=== PATIENT | female | born 1985 | race Caucasian/White ===

== ENCOUNTER 2018-05-11 05:31 | Inpatient (IN) | payer OTHER ==
[~2018-05-11] VITALS: Ht 175.3 cm; Wt 79.8 kg
[2018-05-11] MEDS ORDERED: ABILIFY IM (05:57)
[2018-05-11] MEDS ORDERED: NALT380S2 IM (05:57)
--- NOTE | 2018-05-11 06:47 | NUR ---
MD SALCEDO AT BEDSIDE FOR MSE
[2018-05-11] MEDS ORDERED: LORAZEPAM 2 MG/1 ML VIAL IV ONE (07:00)
[2018-05-11] MEDS ORDERED: LORAZEPAM 2 MG/1 ML VIAL ONE (07:04)
[2018-05-11 07:39] LABS: BASOPHILS # (AUTO) 0.1 K/uL (0.0-8.0); BASOPHILS % (AUTO) 0.6 % (0.0-2.0); EOSINOPHILS % (AUTO) 0.1 % (0.0-7.0); HEMATOCRIT 36.1 % (31.2-41.9); LYMPHOCYTES % (AUTO) 10.1 % (20.5-51.5); MEAN CORPUSCULAR HEMOGLOBIN 26.5 uug (24.7-32.8); MEAN CORPUSCULAR HGB CONC 33 g/dL (32.3-35.6); MEAN CORPUSCULAR VOLUME 79.7 fL (75.5-95.3); MONOCYTES # (AUTO) 0.3 K/uL (2.0-10.0); MONOCYTES % (AUTO) 2.6 % (0.0-11.0); NEUTROPHILS # (AUTO) 8.9 K/uL (1.8-8.9); NEUTROPHILS % (AUTO) 86.6 % (38.5-71.5); PLATELET COUNT (AUTO) 258 K/uL (179-408); RED BLOOD CELL COUNT(AUTO) 4.53 MIL/uL (3.63-4.92); WHITE BLOOD COUNT (AUTO) 10.3 K/uL (3.8-11.8)
--- NOTE | 2018-05-11 07:43 | NUR ---
pt resting, no distress noted.
[2018-05-11 07:53] LABS: BILIRUBIN,DIRECT 0.3 mg/dL (0.0-0.2); BILIRUBIN,TOTAL 1.4 mg/dL (0.2-1.0); CREATININE 0.9 mg/dL (0.6-1.3); POTASSIUM 3.2 mmol/L (3.5-5.1); TOTAL PROTEIN, SERUM 7.3 g/dL (6.4-8.2)
[2018-05-11 07:56] LABS: ETHANOL < 3 MG/DL (0-0)
[2018-05-11] MEDS ORDERED: IV NORMAL SALINE 1000 ML BAG IV ONE (09:15)
--- NOTE | 2018-05-11 09:31 | NUR ---
mse completed, sbar report to garcia peters, belongings list done. pt to rm 225 via saniya.
[2018-05-11 10:00] VITALS: BP 116/72
--- NOTE | 2018-05-11 10:10 | NUR ---
Received this admission from ER per helena, this 32 yo female, with the diagnosis of alcohol withdrawal. Transferred to bed comfortably. Routine admission care rendered. Placed on tele SR. Awake, alert, oriented x 4, able to move all extremities on purpose but noted tremors of hands and feeling of weakness. Radha Treviño PEDIATRIC CLINICAL NURSE SPECIALIST informed of admission.
[2018-05-11 11:38] VITALS: BP 100/65
[2018-05-11] MEDS ORDERED: ZOLPIDEM 5 MG TABLET PO PRN (11:45)
[2018-05-11] MEDS ORDERED: MAGNESIUM HYDROXIDE 30 ML LIQUID UDC PO PRN (11:45)
[2018-05-11] MEDS ORDERED: ACETAMINOPHEN 325 MG TABLET PO PRN (11:45)
[2018-05-11] MEDS ORDERED: POTASSIUM CHLORIDE 20 MEQ TAB.PRT.SR PO ONE (11:45)
[2018-05-11] MEDS ORDERED: ONDANSETRON 4 MG/2 ML VIAL IV PRN (11:45)
[2018-05-11] MEDS: LORAZEPAM 2 MG/1 ML VIAL IV PRN ×2 (12:05→20:31)
[2018-05-11 15:40] VITALS: BP 112/73
--- NOTE | 2018-05-11 16:00 | NUR ---
Assisted to the bathroom. Noted increased in HR/ST 160, not in distress, then back to SR when in bed
[2018-05-11] MEDS: IV NS 1000 ML 1,000 ML IV PRN (16:43)
--- NOTE | 2018-05-11 17:55 | NUR ---
IVF infusing. Calm. No nausea/vomiting noted, tolerating diet. Tele SR 78
[2018-05-11 20:00] VITALS: BP 118/80
--- NOTE | 2018-05-11 20:00 | NUR ---
RECEIVED PATIENT AWAKE IN BED, AAOX4 DENIES PAIN OR ANY DISTRESS ON ASSESSMENT. PATIENT ON TELE WITH SR AT 74. SAFETY MEASURES IN PLACE, CALL LIGHT LEFT WITHIN PATIENT'S REACH
[2018-05-11 23:43] VITALS: BP 100/61
[2018-05-12 03:46] VITALS: BP 108/67
[2018-05-12] MEDS: IV NS 1000 ML 1,000 ML IV PRN (06:23)
--- NOTE | 2018-05-12 06:30 | NUR ---
PATIENT SLEPT WELL THROUGHOUT THE SHIFT. ATIVAN GIVEN X1, NO SHAKINESS OR TREMORS REPORTED ON THIS SHIFT. VSS WNL, NO SIGNIFICANT CHANGES IN STATUS. SAFETY MEASURES MAINTAINED AT ALL TIMES
[2018-05-12 07:01] LABS: BASOPHILS % (AUTO) 0.8 % (0.0-2.0); EOSINOPHILS # (AUTO) 0.1 K/uL (0.0-0.7); EOSINOPHILS % (AUTO) 1.1 % (0.0-7.0); HEMATOCRIT 34.3 % (31.2-41.9); HEMOGLOBIN 11.3 g/dL (10.9-14.3); LYMPHOCYTES # (AUTO) 1.1 K/uL (20.0-40.0); LYMPHOCYTES % (AUTO) 22.3 % (20.5-51.5); MEAN CORPUSCULAR HEMOGLOBIN 26.5 uug (24.7-32.8); MEAN CORPUSCULAR HGB CONC 33 g/dL (32.3-35.6); MEAN CORPUSCULAR VOLUME 80.5 fL (75.5-95.3); MONOCYTES # (AUTO) 0.3 K/uL (2.0-10.0); MONOCYTES % (AUTO) 6.1 % (0.0-11.0); NEUTROPHILS # (AUTO) 3.3 K/uL (1.8-8.9); NEUTROPHILS % (AUTO) 69.7 % (38.5-71.5); PLATELET COUNT (AUTO) 233 K/uL (179-408); RED BLOOD CELL COUNT(AUTO) 4.27 MIL/uL (3.63-4.92)
[2018-05-12 07:07] LABS: CREATININE 0.9 mg/dL (0.6-1.3); MAGNESIUM 1.9 mg/dL (1.8-2.4); PHOSPHOROUS 2.8 mg/dL (2.5-4.9); POTASSIUM 4.2 mmol/L (3.5-5.1)
[2018-05-12 07:09] LABS: WHITE BLOOD COUNT (AUTO) 4.8 K/uL (3.8-11.8)
--- NOTE | 2018-05-12 07:53 | NUR ---
Awake, alert, oriented x 4, calm, no tremors, just had a shower. IVF restarted.
[2018-05-12] MEDS: LORAZEPAM 2 MG/1 ML VIAL IV PRN (11:00)
[2018-05-12 11:30] VITALS: BP 114/84
--- NOTE | 2018-05-12 12:58 | NUR ---
With discharge order, self care, patient made arrangement with [facility]. Tele removed. Saline lock removed. DC instruction given to patient, verbalized understanding. Went home per ambulatory per request, accompanied to the lobby, in fair condition, not in distress, afebrile
== END 2018-05-12 13:00 | disposition home or self-care (01) | DRG 775 ==
LOC: ER 05:31 → MED 09:49 → TELE 10:03 → MED 05-12 11:10
PROVIDERS: ADMIT Nurse Practitioner Acute Care; ATTEND Nurse Practitioner Acute Care
DX: F10.230 Alcohol dependence with withdrawal, uncomplicated (principal); F31.81 Bipolar II disorder; Y90.0 Blood alcohol level of less than 20 mg/100 ml; E87.6 Hypokalemia; G25.2 Other specified forms of tremor; Z79.899 Other long term (current) drug therapy; R11.2 Nausea with vomiting, unspecified
CPT/HCPCS: 36415; 70030-TC; 71045; 83605; 83690; 83735; 84100; 84703; 85025; 85730; 87040; 93005; A4663; G0480; J2060; J2405; J7030

== ENCOUNTER 2018-06-08 10:08 | Emergency (ER) | payer OTHER ==
[~2018-06-08] VITALS: Ht 180.3 cm; Wt 77.1 kg
[~2018-06-08 10:08] MED LIST: ABILIFY IM; NALT380S2 IM
--- NOTE | 2018-06-08 10:21 | NUR ---
PT IS IN ROOM #2B. DR ANDERSON EVALUATED THE PT.
[2018-06-08] MEDS ORDERED: LORAZEPAM 2 MG/1 ML VIAL IV ONE ×2 (10:45→11:30)
[2018-06-08] MEDS ORDERED: ONDANSETRON 4 MG/2 ML VIAL IV ONE (10:45)
[2018-06-08] MEDS ORDERED: IV NORMAL SALINE 1000 ML BAG IV ONE ×3 (10:45→11:30)
[2018-06-08] MEDS ORDERED: LORAZEPAM 2 MG/1 ML VIAL ONE ×2 (10:49→11:38)
[2018-06-08] MEDS ORDERED: ONDANSETRON 4 MG/2 ML VIAL ONE ×2 (10:50→11:38)
[2018-06-08 11:05] LABS: CREATININE 0.9 mg/dL (0.6-1.3); POTASSIUM 3.6 mmol/L (3.5-5.1)
[2018-06-08 11:11] LABS: BILIRUBIN,DIRECT 0.3 mg/dL (0.0-0.2); BILIRUBIN,TOTAL 1.1 mg/dL (0.2-1.0); TOTAL PROTEIN, SERUM 6.5 g/dL (6.4-8.2)
[2018-06-08 11:15] LABS: BASOPHILS # (AUTO) 0.1 K/uL (0.0-8.0); BASOPHILS % (AUTO) 0.9 % (0.0-2.0); EOSINOPHILS % (AUTO) 0.2 % (0.0-7.0); HEMATOCRIT 34.1 % (31.2-41.9); LYMPHOCYTES # (AUTO) 0.8 K/uL (20.0-40.0); LYMPHOCYTES % (AUTO) 8.9 % (20.5-51.5); MEAN CORPUSCULAR HEMOGLOBIN 26.2 uug (24.7-32.8); MEAN CORPUSCULAR HGB CONC 32 g/dL (32.3-35.6); MEAN CORPUSCULAR VOLUME 81.3 fL (75.5-95.3); MONOCYTES # (AUTO) 0.3 K/uL (2.0-10.0); MONOCYTES % (AUTO) 3.7 % (0.0-11.0); NEUTROPHILS # (AUTO) 7.9 K/uL (1.8-8.9); NEUTROPHILS % (AUTO) 86.3 % (38.5-71.5); PLATELET COUNT (AUTO) 276 K/uL (179-408); RED BLOOD CELL COUNT(AUTO) 4.19 MIL/uL (3.63-4.92); WHITE BLOOD COUNT (AUTO) 9.2 K/uL (3.8-11.8)
[2018-06-08] MEDS ORDERED: ONDANSETRON IV *ER 4 MG/2 ML VIAL IV ONE (11:30)
--- NOTE | 2018-06-08 12:56 | NUR ---
PT WAS D/C TO HOME. D/C INSTRUCTIONS GIVEN TO THE PT.
[2018-06-08 12:59] VITALS: BP 130/77
== END 2018-06-08 12:59 | disposition home or self-care (01) ==
LOC: ER 10:08
DX: R11.2 Nausea with vomiting, unspecified (principal); F10.239 Alcohol dependence with withdrawal, unspecified; Z88.8 Allergy status to other drugs, medicaments and biological substances; Z79.899 Other long term (current) drug therapy
CPT/HCPCS: 36415; 83690; 84703; 85025; A4663; J2060; J2405; J7030

== ENCOUNTER 2018-06-21 13:50 | Inpatient (IN) | payer OTHER ==
[~2018-06-21] VITALS: Ht 182.9 cm; Wt 77.1 kg
--- NOTE | 2018-06-21 13:55 | NUR ---
pt deneis trying to hurt self
[2018-06-21] MEDS ORDERED: LORA2TAB95 PO (14:00)
--- NOTE | 2018-06-21 14:03 | NUR ---
pt arousable. cooperated when trying to put hospital gown on, moving all extremeties. pt reluctant to verbally communicate.
[2018-06-21 14:58] LABS: BASOPHILS # (AUTO) 0.1 K/uL (0.0-8.0); BASOPHILS % (AUTO) 1.2 % (0.0-2.0); EOSINOPHILS # (AUTO) 0.1 K/uL (0.0-0.7); EOSINOPHILS % (AUTO) 1.2 % (0.0-7.0); HEMOGLOBIN 11.9 g/dL (10.9-14.3); LYMPHOCYTES # (AUTO) 1.3 K/uL (20.0-40.0); LYMPHOCYTES % (AUTO) 30.7 % (20.5-51.5); MEAN CORPUSCULAR HEMOGLOBIN 27.7 uug (24.7-32.8); MEAN CORPUSCULAR HGB CONC 33 g/dL (32.3-35.6); MEAN CORPUSCULAR VOLUME 84.1 fL (75.5-95.3); MONOCYTES # (AUTO) 0.3 K/uL (2.0-10.0); MONOCYTES % (AUTO) 6.5 % (0.0-11.0); NEUTROPHILS # (AUTO) 2.7 K/uL (1.8-8.9); NEUTROPHILS % (AUTO) 60.4 % (38.5-71.5); PLATELET COUNT (AUTO) 320 K/uL (179-408); RED BLOOD CELL COUNT(AUTO) 4.28 MIL/uL (3.63-4.92); WHITE BLOOD COUNT (AUTO) 4.4 K/uL (3.8-11.8)
[2018-06-21 15:06] LABS: CARBON DIOXIDE 28 mmol/L (21-32); CHLORIDE 107 mmol/L (98-107); CREATININE 2.3 mg/dL (0.6-1.3); GLUCOSE 111 mg/dL (74-106); POTASSIUM 3.9 mmol/L (3.5-5.1); UREA NITROGEN, BLOOD 7 mg/dL (7-18)
[2018-06-21 15:12] LABS: ACETAMINOPHEN < 2.0 ug/mL (10-30); ALANINE AMINOTRANSFERASE 17 U/L (14-59); ALKALINE PHOSPHATASE 50 U/L (50-136); ASPARTATE AMINOTRANSFERASE 15 U/L (15-37); BILIRUBIN,DIRECT 0.1 mg/dL (0.0-0.2); BILIRUBIN,TOTAL 0.4 mg/dL (0.2-1.0); TOTAL PROTEIN, SERUM 6.7 g/dL (6.4-8.2)
[2018-06-21 15:13] LABS: ETHANOL < 3 MG/DL (0-0)
[2018-06-21] MEDS ORDERED: IV NORMAL SALINE 1000 ML BAG IV ONE ×2 (15:45→16:45)
[2018-06-21 16:20] LABS: *AMPHETAMINE, URINE NEGATIVE (NEGATIVE); *BARBITURATE, URINE NEGATIVE (NEGATIVE); *CANNABINOID, URINE NEGATIVE (NEGATIVE); *COCCAINE, URINE NEGATIVE (NEGATIVE); *OPIATE, URINE POSITIVE (NEGATIVE); *PHENCYCLIDINE SCREEN,URINE NEGATIVE (NEGATIVE)
--- NOTE | 2018-06-21 16:49 | NUR ---
pt more responsive now.
--- NOTE | 2018-06-21 17:19 | NUR ---
pt transfered to floor in stable condition
[2018-06-21 17:45] VITALS: BP 104/65
--- NOTE | 2018-06-21 18:33 | NUR ---
Patient admitted to rm 220 from ER, transferred to bed via gurney. Patient lethargic, arouses to touch, only able to state name with speech slurred. Minimal bleeding noted coming from vaginal area, asked patient if she was on her cycle, patient shook head yes, I then asked for how long and patient responded "2 days" MD aware. Patient was cleaned and made comfortable, educated patient to not get out of bed without calling for help, patient nodded her head. Bed alarm on. SR on tele, VSS, call light in reach
--- NOTE | 2018-06-21 19:20 | NUR ---
Received pt lying in bed. Lethargic, responsive to verbal stimuli and touch. In no acute distress. IV site on left hand intact and patent. IVF infusing. NSR on tele at 76/min. Safety measure initiated and call berg within reach.
[2018-06-21] MEDS ORDERED: MORPHINE SULFATE 2 MG/1 ML DISP.SYRIN IV PRN (19:30)
[2018-06-21 20:40] VITALS: BP 103/58
[2018-06-21] MEDS: ONDANSETRON 4 MG/2 ML VIAL IV PRN (22:27)
[2018-06-21] MEDS: ACETAMINOPHEN 325 MG TABLET PO PRN (22:30)
[2018-06-21] MEDS: IV NS 1000 ML 1,000 ML IV PRN (22:31)
[2018-06-21] MEDS: LORAZEPAM 2 MG/1 ML VIAL IV PRN (22:42)
[2018-06-22 00:23] VITALS: BP 106/60
[2018-06-22 04:00] VITALS: BP 99/59
--- NOTE | 2018-06-22 04:45 | NUR ---
Patient accidentally puled out her IV line. Started new IV line on left wrist area #22 gauge.
[2018-06-22] MEDS: LORAZEPAM 2 MG/1 ML VIAL IV PRN ×4 (04:55→23:48)
--- NOTE | 2018-06-22 06:06 | NUR ---
Asleep but easily arouse to verbal stimuli. AOX3 In no acute distress. IV site on left wrist intact and patent. IVF infusing. NSR on tele at 82/min. Safety measure maintained and call berg within reach.
[2018-06-22] MEDS: PANTOPRAZOLE SODIUM 40 MG TABLET.DR PO SCH (06:11)
--- NOTE | 2018-06-22 07:00 | NUR ---
RECEIVED PATIENT ON BED ASLEEP. AROUSABLE TO VERBAL STIMULI AAO X3. NO ACUTE DISTRESS NOTED. IV ACCESS ON LEFT WRIST #22 INTACT AND PATENT RUNNING NS @80CC/HR. S/S OF ALCOHOL WITHDRAWAL; SHAKING, ANXIETY, NAUSEA NOTED PER PUBLICATIONS INSPECTOR. PATIENT HAS ATIVAN PRN AND ZOFRAN PRN ALSO PATIENT IS CURRENTLY ON HER PERIOD. COMFORT MEASURES PROVIDED. CALL LIGHT WITHIN REACH,. WILL CONTINUE TO MONITOR CLOSELY.
[2018-06-22 07:11] LABS: BASOPHILS # (AUTO) 0.1 K/uL (0.0-8.0); BASOPHILS % (AUTO) 1.2 % (0.0-2.0); EOSINOPHILS # (AUTO) 0.1 K/uL (0.0-0.7); EOSINOPHILS % (AUTO) 1.7 % (0.0-7.0); HEMATOCRIT 35.2 % (31.2-41.9); HEMOGLOBIN 11.5 g/dL (10.9-14.3); LYMPHOCYTES # (AUTO) 1.4 K/uL (20.0-40.0); LYMPHOCYTES % (AUTO) 31.9 % (20.5-51.5); MEAN CORPUSCULAR HEMOGLOBIN 28.1 uug (24.7-32.8); MEAN CORPUSCULAR HGB CONC 33 g/dL (32.3-35.6); MONOCYTES # (AUTO) 0.2 K/uL (2.0-10.0); MONOCYTES % (AUTO) 5.3 % (0.0-11.0); NEUTROPHILS # (AUTO) 2.7 K/uL (1.8-8.9); NEUTROPHILS % (AUTO) 59.9 % (38.5-71.5); PLATELET COUNT (AUTO) 306 K/uL (179-408); RED BLOOD CELL COUNT(AUTO) 4.09 MIL/uL (3.63-4.92); WHITE BLOOD COUNT (AUTO) 4.5 K/uL (3.8-11.8)
[2018-06-22 07:25] LABS: BILIRUBIN,TOTAL 0.5 mg/dL (0.2-1.0); CREATININE 2.4 mg/dL (0.6-1.3); MAGNESIUM 2.2 mg/dL (1.8-2.4); PHOSPHOROUS 3.4 mg/dL (2.5-4.9); POTASSIUM 3.5 mmol/L (3.5-5.1); TOTAL PROTEIN, SERUM 6.5 g/dL (6.4-8.2)
[2018-06-22 08:13] LABS: THYROID STIMULATING HORMONE 1.351 mIU/mL (0.358-3.740)
[2018-06-22] MEDS: FOLIC ACID 1 MG TABLET PO SCH (08:27)
[2018-06-22] MEDS: THIAMINE HCL 100 MG TABLET PO SCH (08:27)
[2018-06-22] MEDS: MULTIVITAMINS,THERAPEUTIC TABLET PO SCH (08:27)
[2018-06-22] MEDS: ONDANSETRON 4 MG/2 ML VIAL IV PRN ×2 (08:35→17:58)
[2018-06-22 11:38] VITALS: BP 98/56
[2018-06-22] MEDS: ACETAMINOPHEN 325 MG TABLET PO PRN ×2 (12:37→23:09)
[2018-06-22] MEDS: IV NS 1000 ML 1,000 ML IV PRN ×2 (12:38→19:44)
[2018-06-22 13:55] LABS: *BILIRUBIN,URIN NEGATIVE (NEGATIVE); *BLOOD, URINE 3+ (NEGATIVE); *COLOR,URINE PINK (YELLOW); *KETONES,URINE NEGATIVE (NEGATIVE); *PROTEIN,URINE 1+ (NEGATIVE); *UROBILINOGEN,URINE 0.2 E.U./dl (NORMAL); LEUKOCYTE ESTERASE ,URINE TRACE (NEGATIVE); NITRITE, URINE NEGATIVE (NEGATIVE); UGLUCOSE NEGATIVE (NEGATIVE)
[2018-06-22 13:57] LABS: *CLARITY,URINE HAZY (CLEAR)
[2018-06-22 14:03] LABS: RBC,URINE 20-50 /HPF (0-3)
[2018-06-22 14:05] LABS: BACTERIA,URINE MODERATE /HPF (NONE SEEN); SQUAMOUS EPITHELIAL CELL,UR MODERATE /HPF (NONE SEEN)
[2018-06-22 15:28] LABS: *CREATININE,URINE 54.1 mg/dL (30-125); *URINE TOTAL PROTEIN RANDOM 48.3 mg/dL (<150/24HR)
[2018-06-22 15:32] VITALS: BP 103/68
--- NOTE | 2018-06-22 18:20 | NUR ---
END OF SHIFT NOTES. PATIENT RESTING COMFORTABLY ON BED. IV ACCESS ON LEFT WRIST #22 INTACT AND PATENT INFUSING NS, INCREASED TO 125 CC/HR. STILL EXPERIENCING S/S OF ALCOHOL WITHDRAWALS; SHAKING, ANXIETY, NAUSEA AND VOMITING. EMESIS X 1. ATIVAN AND ZOFRAN PRN GIVEN TWICE THIS SHIFT. PATIENT HAD LITTLE APPETITE THROUGHOUT THE DAY. PATIENT STILL ON HER PERIOD. ALL NEEDS ATTENDED AND ANTICIPATED. CALL LIGHT WITHIN REACH WILL CONTINUE TO MONITOR CLOSELY.
[2018-06-22 19:43] VITALS: BP 124/87
--- NOTE | 2018-06-22 21:06 | NUR ---
Pt seen and evaluated by Dr. Solorio. Patient complained of headache. Pain medication administered and effective. Assisted patient to restroom due to notable trembling and complaints of dizziness. Will continue to monitor.
--- NOTE | 2018-06-23 01:16 | NUR ---
Pt sleeping comfortably. Bed in low position. Bed alarms engaged. CIWA done ever 4 hours. Frequent visual checks. Will continue to monitor.
[2018-06-23 03:45] VITALS: BP 111/76
[2018-06-23] MEDS: PANTOPRAZOLE SODIUM 40 MG TABLET.DR PO SCH (06:11)
--- NOTE | 2018-06-23 06:23 | NUR ---
Pt resting in bed. Blood drawn by wan support specialist. Pt arousable. No complaints of pain at this time. Reminded to request assistance when getting out of bed. Frequent visual checks. Will continue plan of care.
--- NOTE | 2018-06-23 07:10 | NUR ---
Nurse Notes: Received patient asleep, on bed on a side lying position, on room air, no SOB or distress, easily aroused. Denies any pain or discomforts. IV site patent and intact. informed of the hourly rounding, safety precautions observed. Call light and telephone within reach. Encouraged to use call light whenever assistance is needed. Will continue to monitor.
[2018-06-23 07:21] LABS: BASOPHILS # (AUTO) 0.1 K/uL (0.0-8.0); EOSINOPHILS # (AUTO) 0.1 K/uL (0.0-0.7); EOSINOPHILS % (AUTO) 1.4 % (0.0-7.0); HEMATOCRIT 33.3 % (31.2-41.9); HEMOGLOBIN 11.1 g/dL (10.9-14.3); LYMPHOCYTES # (AUTO) 1.4 K/uL (20.0-40.0); LYMPHOCYTES % (AUTO) 24.4 % (20.5-51.5); MEAN CORPUSCULAR HEMOGLOBIN 28.3 uug (24.7-32.8); MEAN CORPUSCULAR HGB CONC 33 g/dL (32.3-35.6); MEAN CORPUSCULAR VOLUME 84.8 fL (75.5-95.3); MONOCYTES # (AUTO) 0.4 K/uL (2.0-10.0); MONOCYTES % (AUTO) 6.5 % (0.0-11.0); NEUTROPHILS # (AUTO) 3.7 K/uL (1.8-8.9); NEUTROPHILS % (AUTO) 66.7 % (38.5-71.5); PLATELET COUNT (AUTO) 317 K/uL (179-408); RED BLOOD CELL COUNT(AUTO) 3.92 MIL/uL (3.63-4.92); WHITE BLOOD COUNT (AUTO) 5.6 K/uL (3.8-11.8)
[2018-06-23 07:35] LABS: BILIRUBIN,TOTAL 0.4 mg/dL (0.2-1.0); CREATININE 1.9 mg/dL (0.6-1.3); MAGNESIUM 1.7 mg/dL (1.8-2.4); PHOSPHOROUS 3.5 mg/dL (2.5-4.9); POTASSIUM 3.9 mmol/L (3.5-5.1); TOTAL PROTEIN, SERUM 6.2 g/dL (6.4-8.2)
[2018-06-23] MEDS: IV NS 1000 ML 1,000 ML IV PRN ×2 (08:17→16:44)
[2018-06-23] MEDS: FOLIC ACID 1 MG TABLET PO SCH (08:17)
[2018-06-23] MEDS: MULTIVITAMINS,THERAPEUTIC TABLET PO SCH (08:18)
[2018-06-23] MEDS: THIAMINE HCL 100 MG TABLET PO SCH (08:18)
[2018-06-23] MEDS: ONDANSETRON 4 MG/2 ML VIAL IV PRN (08:28)
[2018-06-23] MEDS: LORAZEPAM 2 MG/1 ML VIAL IV PRN ×3 (11:25→22:47)
[2018-06-23 11:32] VITALS: BP 123/87
[2018-06-23] MEDS ORDERED: MAGNESIUM OXIDE 400 MG TABLET PO ONE (12:15)
[2018-06-23] MEDS ORDERED: MIRALAX 17 GM POWD.PACK PO PRN (12:15)
[2018-06-23 15:20] VITALS: BP 121/86
--- NOTE | 2018-06-23 16:41 | NUR ---
Nurse Notes: patient accidentally pulled out her IV on her left arm. No signs and symptoms of infection on the site noted. Patient denies any pain or discomforts on the site. Able to insert a new IV line on right hand gauge 22, labeled and secured with transparent dressing. patient tolerated well the procedure.
[2018-06-23] MEDS: ACETAMINOPHEN 325 MG TABLET PO PRN (17:12)
--- NOTE | 2018-06-23 17:17 | NUR ---
Nurse notes: patient remained stable throughout the shift with no acute changes noted. no changes in LOC or mentation. Assessed for pain, medicated with Tylenol for headache. Ativan given for anxiety- relieved. safety precautions observed. frequent visual checks done. Safety precautions observed. call light and telephone within reach at all times. kept patient comfortable. Encouraged to turn and reposition. IV site patent and intact. Still on NS at 125 mL/hr. patient denies any discomforts on the site. Will continue to monitor. Will endorse accordingly to incoming shift for continuity of care.
[2018-06-23 19:30] VITALS: BP 122/84
--- NOTE | 2018-06-23 20:00 | NUR ---
Pt awake alert oriented. CIWA monitoring every 4 hours. Noted with decreased tremors today. Pt able to ambulate to restroom with assistance. Call light in reach. Bed in low position. Frequent visual checks. Will continue to monitor.
--- NOTE | 2018-06-23 23:30 | NUR ---
IV site dressing changed. Pt took shower with assistance from RUFINA carver. Pt appears to be improving. Noted with decrease tremors. No complaints of pain. Pt stated she was anxious. Medication administered and effective. Call light in reach. Will continue to monitor.
--- NOTE | 2018-06-24 02:00 | NUR ---
Noted pt verbalized the she "cared for mother" and knows how to use an IV machine. Pt manipulating IV pump. Encouraged to minimize manipulating pump. Call light in reach at all times. Will continue to monitor.
[2018-06-24] MEDS: IV NS 1000 ML 1,000 ML IV PRN (03:32)
[2018-06-24 03:38] VITALS: BP 106/70
[2018-06-24] MEDS: PANTOPRAZOLE SODIUM 40 MG TABLET.DR PO SCH (06:02)
[2018-06-24 06:05] LABS: CREATININE 1.3 mg/dL (0.6-1.3); MAGNESIUM 1.7 mg/dL (1.8-2.4); POTASSIUM 3.6 mmol/L (3.5-5.1)
--- NOTE | 2018-06-24 07:30 | NUR ---
Pt.sleeping,no s/s of acute distress or pain noted.
[2018-06-24] MEDS: THIAMINE HCL 100 MG TABLET PO SCH (08:22)
[2018-06-24] MEDS: FOLIC ACID 1 MG TABLET PO SCH (08:22)
[2018-06-24] MEDS: MULTIVITAMINS,THERAPEUTIC TABLET PO SCH (08:22)
[2018-06-24] MEDS ORDERED: NITROFURANTOIN/NITROFURAN MAC 100 MG CAPSULE PO SCH (09:00)
[2018-06-24 11:20] VITALS: BP 121/78
--- NOTE | 2018-06-24 11:55 | NUR ---
Pt.accidently pull iv out,refuse to putt on due d/c home,no s/s of acute distress.
--- NOTE | 2018-06-24 12:10 | NUR ---
Pt.was seen by with d/c orders.
[2018-06-24] MEDS ORDERED: MULT1TAB73 PO (12:33)
[2018-06-24] MEDS ORDERED: DIAZ10TA PO (12:33)
--- NOTE | 2018-06-24 13:24 | NUR ---
Pt.d/c instruction provided,pt.own med was roller picker from pharmacy and returned to the pt.Pt.was d/c home accompanied by friend.
== END 2018-06-24 13:30 | disposition home or self-care (01) | DRG 812 ==
LOC: ER 13:50 → TELE 16:56 → MED 06-22 12:30
PROVIDERS: ADMIT Internal Medicine; ATTEND Internal Medicine
DX: T42.4X1A Poisoning by benzodiazepines, accidental (unintentional), initial encounter (principal); N17.0 Acute kidney failure with tubular necrosis; G92 Toxic encephalopathy; E83.42 Hypomagnesemia; E88.09 Other disorders of plasma-protein metabolism, not elsewhere classified; F31.9 Bipolar disorder, unspecified; Y92.009 Unspecified place in unspecified non-institutional (private) residence as the place of occurrence of the external cause; F10.239 Alcohol dependence with withdrawal, unspecified; T51.0X1A Toxic effect of ethanol, accidental (unintentional), initial encounter; Y90.0 Blood alcohol level of less than 20 mg/100 ml; N39.0 Urinary tract infection, site not specified; F41.9 Anxiety disorder, unspecified
CPT/HCPCS: 36415; 76770; 80307; 83735; 83970; 84100; 84156; 84300; 84443; 84703; 85025; 93005; A4663; C1758; G0480; G0480-TC; J2060; J2270; J2405; J7030

== ENCOUNTER 2018-08-07 14:37 | Inpatient (IN) | payer OTHER ==
[~2018-08-07] VITALS: Ht 175.3 cm; Wt 77.1 kg
[~2018-08-07 14:37] MED LIST changes: +DIAZ10TA PO; +MULT1TAB73 PO; -NALT380S2 IM
[2018-08-07] MEDS ORDERED: LORAZEPAM 2 MG/1 ML VIAL IV ONE ×4 (14:45→18:00)
[2018-08-07] MEDS ORDERED: IV NORMAL SALINE 1000 ML BAG IV ONE ×2 (14:45→16:30)
[2018-08-07] MEDS ORDERED: ONDANSETRON 4 MG/2 ML VIAL ONE ×2 (14:54→15:49)
[2018-08-07] MEDS ORDERED: LORAZEPAM 2 MG/1 ML VIAL ONE ×3 (14:55→20:55)
[2018-08-07] MEDS ORDERED: ONDANSETRON IV *ER 4 MG/2 ML VIAL IV ONE ×2 (15:00→15:45)
[2018-08-07 15:02] LABS: BASOPHILS # (AUTO) 0.2 K/uL (0.0-8.0); BASOPHILS % (AUTO) 2.7 % (0.0-2.0); EOSINOPHILS % (AUTO) 0.2 % (0.0-7.0); HEMATOCRIT 36.9 % (31.2-41.9); HEMOGLOBIN 12.2 g/dL (10.9-14.3); LYMPHOCYTES # (AUTO) 1.1 K/uL (20.0-40.0); LYMPHOCYTES % (AUTO) 13.5 % (20.5-51.5); MEAN CORPUSCULAR HEMOGLOBIN 28.1 uug (24.7-32.8); MEAN CORPUSCULAR HGB CONC 33 g/dL (32.3-35.6); MEAN CORPUSCULAR VOLUME 85.1 fL (75.5-95.3); MONOCYTES # (AUTO) 0.3 K/uL (2.0-10.0); MONOCYTES % (AUTO) 3.7 % (0.0-11.0); NEUTROPHILS # (AUTO) 6.4 K/uL (1.8-8.9); NEUTROPHILS % (AUTO) 79.9 % (38.5-71.5); PLATELET COUNT (AUTO) 310 K/uL (179-408); RED BLOOD CELL COUNT(AUTO) 4.33 MIL/uL (3.63-4.92)
[2018-08-07 15:11] LABS: POTASSIUM 3.8 mmol/L (3.5-5.1)
[2018-08-07 15:17] LABS: BILIRUBIN,TOTAL 0.9 mg/dL (0.2-1.0); TOTAL PROTEIN, SERUM 7.3 g/dL (6.4-8.2)
--- NOTE | 2018-08-07 16:05 | NUR ---
APPLE JUICE PROVIDED FOR PT.
[2018-08-07 16:06] LABS: *BILIRUBIN,URIN NEGATIVE (NEGATIVE); *BLOOD, URINE 2+ (NEGATIVE); *CLARITY,URINE TURBID (CLEAR); *COLOR,URINE YELLOW (YELLOW); *KETONES,URINE 3+ (NEGATIVE); *PROTEIN,URINE 3+ (NEGATIVE); *UROBILINOGEN,URINE 0.2 E.U./dl (NORMAL); LEUKOCYTE ESTERASE ,URINE 2+ (NEGATIVE); NITRITE, URINE NEGATIVE (NEGATIVE); PH,URINE 5.5 (5.0-8.0); UGLUCOSE NEGATIVE (NEGATIVE)
[2018-08-07 16:07] LABS: *URINE HCG, QUAL NEGATIVE (NEGATIVE)
[2018-08-07 16:08] LABS: BACTERIA,URINE FEW /HPF (NONE SEEN); SQUAMOUS EPITHELIAL CELL,UR FEW /HPF (NONE SEEN); WBC,URINE TNTC /HPF (0-3)
[2018-08-07] MEDS ORDERED: DEXTROSE 50% 50 ML DISP.SYRIN IV ONE (16:30)
[2018-08-07] MEDS ORDERED: METOCLOPRAMIDE HCL 10 MG/2 ML VIAL IV ONE (16:30)
[2018-08-07] MEDS ORDERED: DEXTROSE 50% 50 ML DISP.SYRIN ONE (16:37)
[2018-08-07] MEDS ORDERED: METOCLOPRAMIDE HCL 10 MG/2 ML VIAL ONE (16:42)
[2018-08-07] MEDS ORDERED: CEFTRIAXONE 1 G in IV DEXTROSE 5% 50 ML IV ONE (17:15)
--- NOTE | 2018-08-07 17:15 | NUR ---
PT RESTING, NO SIGN OF DISTRESS AT THIS POINT
[2018-08-07] MEDS ORDERED: CEFTRIAXONE 1 G VIAL ONE (17:30)
[2018-08-07] MEDS ORDERED: THIAMINE HCL 200 MG/2 ML VIAL IV ONE (18:00)
[2018-08-07] MEDS ORDERED: THIAMINE HCL 200 MG/2 ML VIAL ONE (18:10)
--- NOTE | 2018-08-07 18:10 | NUR ---
PT TRANSFERED TO FLOOR IN STABLE CONDITION
[2018-08-07 18:30] VITALS: BP 148/83
--- NOTE | 2018-08-07 18:30 | NUR ---
aDMIT A 32YO FEMALE FROM er VIA GURNEY WITH A C/O ALCOHOL WITHDRAWAL. PT IS AWAKE AND ORIENTEDX3. SPEECH IS CLEAR AND FOLLOWS COMMANDS. CONNECT TO MONITOR, HR IS SINUS TACHYCARDIA IN THE 104-115. NO CHEST PAINS OR RESPIRATORY DISTRESS NOTED. HEPLOCK G20 ON THE RIGHT FA PATENT AND INTACT. NOTED TO HAVE SOME TREMORS OH HER HANDS.
--- NOTE | 2018-08-07 19:00 | NUR ---
NOTIFIED DR CARLOS OSULLIVAN REGARDING ADMIT ORDERS.
[2018-08-07] MEDS ORDERED: THIAMINE HCL INJ 100 MG in IV DEXTROSE 5% 50 ML IV ONE (19:30)
[2018-08-07] MEDS ORDERED: Z GUARD REMEDY PASTE 57 GM TUBE TOP PRN (19:30)
[2018-08-07] MEDS ORDERED: ACETAMINOPHEN 325 MG TABLET PO PRN (19:30)
[2018-08-07 19:36] VITALS: BP 135/75
--- NOTE | 2018-08-07 20:00 | NUR ---
Received pt resting in bed and noted to be AAO x 3. Tele observed to be sinus rhythm with HR in the high 90's. Pt noted to have mild tremors on hands. Pt cooperative, but slightly anxious and noted to be nauseous. Will provide ice chips and administer meds as ordered. Pt made aware of plan of care. No s/s of acute distress noted at this time. Safe environment implemented. Call light within reach.
[2018-08-07] MEDS: LORAZEPAM 2 MG/1 ML VIAL IV PRN ×2 (20:58→22:59)
[2018-08-07] MEDS: ONDANSETRON 4 MG/2 ML VIAL IV PRN (20:58)
[2018-08-07] MEDS: IV NS 1000 ML 1,000 ML IV PRN (21:03)
[2018-08-07 23:50] VITALS: BP 118/78
[2018-08-08] MEDS ORDERED: LORAZEPAM 2 MG/1 ML VIAL ONE (02:19)
[2018-08-08] MEDS: ONDANSETRON 4 MG/2 ML VIAL IV PRN ×3 (03:42→14:32)
[2018-08-08] MEDS: LORAZEPAM 2 MG/1 ML VIAL IV PRN ×6 (03:42→23:38)
[2018-08-08 03:45] VITALS: BP 122/67
[2018-08-08] MEDS: PANTOPRAZOLE SODIUM 40 MG TABLET.DR PO SCH (06:16)
[2018-08-08] MEDS: IV NS 1000 ML 1,000 ML IV PRN (06:20)
[2018-08-08 06:25] LABS: BASOPHILS % (AUTO) 1.1 % (0.0-2.0); EOSINOPHILS # (AUTO) 0.1 K/uL (0.0-0.7); EOSINOPHILS % (AUTO) 1.2 % (0.0-7.0); HEMATOCRIT 31.9 % (31.2-41.9); HEMOGLOBIN 10.7 g/dL (10.9-14.3); LYMPHOCYTES # (AUTO) 1.1 K/uL (20.0-40.0); LYMPHOCYTES % (AUTO) 24.5 % (20.5-51.5); MEAN CORPUSCULAR HEMOGLOBIN 28.4 uug (24.7-32.8); MEAN CORPUSCULAR HGB CONC 34 g/dL (32.3-35.6); MEAN CORPUSCULAR VOLUME 84.5 fL (75.5-95.3); MONOCYTES # (AUTO) 0.4 K/uL (2.0-10.0); MONOCYTES % (AUTO) 8.5 % (0.0-11.0); NEUTROPHILS # (AUTO) 2.9 K/uL (1.8-8.9); NEUTROPHILS % (AUTO) 64.7 % (38.5-71.5); PLATELET COUNT (AUTO) 254 K/uL (179-408); RED BLOOD CELL COUNT(AUTO) 3.77 MIL/uL (3.63-4.92); WHITE BLOOD COUNT (AUTO) 4.4 K/uL (3.8-11.8)
--- NOTE | 2018-08-08 06:40 | NUR ---
Pt cooperative with all care and aware of plan of care. Mild hand tremors noted, pt denies dizziness and hallucinations at this time. Pt resting at this time. Safe environment implemented. Tele sinus rhythm with HR in the 60's.
[2018-08-08 06:43] LABS: BILIRUBIN,TOTAL 1.4 mg/dL (0.2-1.0); CREATININE 0.9 mg/dL (0.6-1.3); MAGNESIUM 1.4 mg/dL (1.8-2.4); PHOSPHOROUS 2.3 mg/dL (2.5-4.9); POTASSIUM 3.5 mmol/L (3.5-5.1); TOTAL PROTEIN, SERUM 5.8 g/dL (6.4-8.2)
--- NOTE | 2018-08-08 07:30 | NUR ---
RECIEVED PT LYING ING BED, SOUND ASLEEP BUT EASILY AROUSABLE. CALM AND COOPERATIVE. HR SR IN THE 80'S. NO APPARENT SOB NOTED ON RA. IVF INFUSING WELL AND IN PROGRESS. AFEBRILE.
[2018-08-08] MEDS: FOLIC ACID 1 MG TABLET PO SCH (08:02)
[2018-08-08] MEDS: THIAMINE HCL 100 MG TABLET PO SCH (08:02)
[2018-08-08] MEDS: MULTIVITAMINS,THERAPEUTIC TABLET PO SCH (08:02)
--- NOTE | 2018-08-08 10:00 | NUR ---
IVF SITE IS ACCIDENTALLY PULLED OUT. RESTARTED A NEW IV ACCESS G20 ON THE RIGHT FA.
[2018-08-08 11:22] VITALS: BP 125/84
--- NOTE | 2018-08-08 13:00 | NUR ---
PT HAS A SHOWER AND OK WITH DR CARLOS OSULLIVAN. TOLERATED WELL.
[2018-08-08] MEDS: MAGNESIUM SULFATE/D5W 100 ML IV SCH ×4 (14:18→17:53)
[2018-08-08 15:04] VITALS: BP 127/82
[2018-08-08] MEDS ORDERED: NEUTRA PHOS PACKET PO ONE (15:15)
[2018-08-08] MEDS ORDERED: CEFTRIAXONE 2 G in IV DEXTROSE 5% 100 ML IV SCH (17:00)
--- NOTE | 2018-08-08 18:00 | NUR ---
PT IS MORE CALM AT THIS TIME. RECIEVED A TOTAL OF 4MG OF ATIVAN ALL DAY. ATE GODD DURING MEALS. TELEMETRY IS DISCONTINUED ORDERED.
--- NOTE | 2018-08-08 19:20 | NUR ---
Received pt sitting up in bed and calm at this time, requesting ativan IV as ordered. Per pt, hand tremors are "not as bad as last night." Pt aware of plan of care. IVF running as ordered. Safe environment implemented. Call light within reach.
[2018-08-08 19:35] VITALS: BP 132/94
--- NOTE | 2018-08-08 21:00 | NUR ---
Pt would like to take a break from IVF at this time. She states that she wants to be able to turn in bed without worrying about pulling her IV out. Pt encouraged to drink fluids and tolerating.
--- NOTE | 2018-08-08 22:00 | NUR ---
Pt verbalizing that she is currently having auditory hallucinations when she closes her eyes telling her that she is "a piece of crap." LATOYA Whitaker made aware. Pt closely monitored and redirection/relaxation techniques provided.
[2018-08-08] MEDS ORDERED: DIAZEPAM 10 MG/2 ML DISP.SYRIN IV PRN (22:30)
[2018-08-08 23:49] VITALS: BP 120/85
[2018-08-09] MEDS ORDERED: DIAZEPAM 5 MG TABLET PO ONE
[2018-08-09 03:46] VITALS: BP 119/84
[2018-08-09] MEDS: PANTOPRAZOLE SODIUM 40 MG TABLET.DR PO SCH (06:26)
--- NOTE | 2018-08-09 06:34 | NUR ---
Pt still refusing IVF and stating that she would like to go home by today. No s/s of acute distress noted at this time. No visible tremors noted. Per pt, she is still having auditory hallucinations reminding her of situations that she has been encountering the past couple of weeks. Pt denies SI/HI at this time. Safe environment implemented. Call light within reach.
[2018-08-09 06:49] LABS: CREATININE 0.8 mg/dL (0.6-1.3); PHOSPHOROUS 2.4 mg/dL (2.5-4.9); POTASSIUM 3.7 mmol/L (3.5-5.1)
[2018-08-09] MEDS: MULTIVITAMINS,THERAPEUTIC TABLET PO SCH (08:07)
[2018-08-09] MEDS: THIAMINE HCL 100 MG TABLET PO SCH (08:07)
[2018-08-09] MEDS: FOLIC ACID 1 MG TABLET PO SCH (08:07)
[2018-08-09 11:31] VITALS: BP 101/69
[2018-08-09] MEDS ORDERED: FOLI1TAB16 PO (14:52)
[2018-08-09] MEDS ORDERED: LORA2TAB95 PO (14:52)
[2018-08-09] MEDS ORDERED: MULT-24 PO (14:52)
[2018-08-09] MEDS ORDERED: THIA100T13 PO (14:52)
[2018-08-09 15:09] VITALS: BP 110/76
--- NOTE | 2018-08-09 16:14 | NUR ---
D/C ORDERS RECEIVED NOTED AND CARRIED OUT,D/C INSTRUCTION AND EDUCATION GIVEN TO THE PT,D/C CESAR PER MD ORDERS.[PT LEFT THE FACILITY VIA PRIVATE CAR IN STABLE CONDITION
== END 2018-08-09 16:20 | disposition home or self-care (01) | DRG 775 ==
LOC: ER 14:38 → TELE 18:12 → MED 08-08 18:03
PROVIDERS: ADMIT Nurse Practitioner Acute Care; ATTEND Nurse Practitioner Acute Care
DX: F10.239 Alcohol dependence with withdrawal, unspecified (principal); E83.39 Other disorders of phosphorus metabolism; D64.9 Anemia, unspecified; N39.0 Urinary tract infection, site not specified; F32.9 Major depressive disorder, single episode, unspecified; E83.42 Hypomagnesemia; E83.51 Hypocalcemia; F17.210 Nicotine dependence, cigarettes, uncomplicated; T51.0X1A Toxic effect of ethanol, accidental (unintentional), initial encounter; Y90.6 Blood alcohol level of 120-199 mg/100 ml
CPT/HCPCS: 36415; 83690; 83735; 84100; 84703; 85025; 87086; A4663; G0480; J0696; J2060; J2405; J2765; J3411; J3475; J3490; J7030; J7050; J7060

== ENCOUNTER 2020-10-08 10:23 | Inpatient (IN) | payer OTHER ==
[~2020-10-08] VITALS: Ht 172.7 cm; Wt 76.7 kg
[~2020-10-08 10:23] MED LIST changes: -ABILIFY IM; -DIAZ10TA PO; +FOLI1TAB16 PO; +LORA2TAB95 PO; +MULT-24 PO; -MULT1TAB73 PO; +THIA100T13 PO
--- NOTE | 2020-10-08 10:53 | NUR ---
MD@bedside , medical screening exam in progress
[2020-10-08] MEDS ORDERED: FOLIC ACID/VITAMIN B COMP W-C TABLET PO STA (10:58)
[2020-10-08] MEDS ORDERED: IV NORMAL SALINE 1000 ML BAG IV ONE ×2 (11:00→13:30)
[2020-10-08] MEDS ORDERED: LORAZEPAM 2 MG/1 ML VIAL IV ONE ×2 (11:00→12:30)
[2020-10-08] MEDS ORDERED: ONDANSETRON 4 MG/2 ML VIAL IV ONE ×2 (11:00→13:30)
[2020-10-08] MEDS ORDERED: THIAMINE HCL 100 MG TABLET PO ONE (11:00)
[2020-10-08] MEDS ORDERED: ONDANSETRON 4 MG/2 ML VIAL ONE ×2 (11:22→12:50)
[2020-10-08] MEDS ORDERED: LORAZEPAM 2 MG/1 ML VIAL ONE ×2 (11:22→12:29)
[2020-10-08] MEDS ORDERED: THIAMINE HCL 100 MG TABLET ONE (11:23)
[2020-10-08 11:29] LABS: BASOPHILS % (AUTO) 0.1 % (0.0-2.0); HEMATOCRIT 44.2 % (31.2-41.9); HEMOGLOBIN 14.5 g/dL (10.9-14.3); LYMPHOCYTES # (AUTO) 0.1 K/uL (20.0-40.0); LYMPHOCYTES % (AUTO) 1.5 % (20.5-51.5); MEAN CORPUSCULAR HEMOGLOBIN 30.4 uug (24.7-32.8); MEAN CORPUSCULAR HGB CONC 33 g/dL (32.3-35.6); MEAN CORPUSCULAR VOLUME 92.5 fL (75.5-95.3); MONOCYTES # (AUTO) 0.2 K/uL (2.0-10.0); MONOCYTES % (AUTO) 2.3 % (0.0-11.0); NEUTROPHILS # (AUTO) 8.8 K/uL (1.8-8.9); NEUTROPHILS % (AUTO) 96.1 % (38.5-71.5); PLATELET COUNT (AUTO) 101 K/uL (179-408); RED BLOOD CELL COUNT(AUTO) 4.78 MIL/uL (3.63-4.92); WHITE BLOOD COUNT (AUTO) 9.1 K/uL (3.8-11.8)
[2020-10-08] MEDS ORDERED: FAMOTIDINE. 20 MG/2 ML VIAL IV ONE ×2 (11:30→12:10)
[2020-10-08] MEDS ORDERED: LIDOCAINE VISCUS 2% 15 ML UDC MM ONE (11:30)
[2020-10-08] MEDS ORDERED: MAG HYDROX/AL HYDROX/SIMETH 30 ML LIQUID UDC PO ONE (11:30)
[2020-10-08 11:36] LABS: CREATININE 1.1 mg/dL (0.6-1.3); POTASSIUM 4.5 mmol/L (3.5-5.1)
[2020-10-08 11:42] LABS: BILIRUBIN,DIRECT 0.9 mg/dL (0.0-0.2); BILIRUBIN,TOTAL 2.1 mg/dL (0.2-1.0); TOTAL PROTEIN, SERUM 8.9 g/dL (6.4-8.2)
[2020-10-08] MEDS ORDERED: MAG HYDROX/AL HYDROX/SIMETH 30 ML LIQUID UDC ONE (12:09)
[2020-10-08] MEDS ORDERED: LIDOCAINE VISCUS 2% 15 ML UDC ONE (12:10)
[2020-10-08] MEDS ORDERED: BIRTH CONTROL (12:28)
--- NOTE | 2020-10-08 12:33 | NUR ---
Pending insurance verification for hospital admission by ER registration staff Gerber@this time. Patient is seen resting on high masters's position. Patient was reminded repeatedly re: NPO status. Patient is seen drinking water from her 7-eleven big plastic cup more than twice despite frequent reminders.
--- NOTE | 2020-10-08 12:45 | NUR ---
Covid-19 swab collected & sent to lab. Patient wants more IV fluids & anti-nausea medicine notified.
--- NOTE | 2020-10-08 13:33 | NUR ---
Patient is resting comfortably on gunrey while intermittently using her personal electronic device, NAD. No seizures seen & no tremors seen. Patient denies nausea@this time.
--- NOTE | 2020-10-08 14:02 | NUR ---
"OK to have ice chips." per Dr Liz.
--- NOTE | 2020-10-08 14:49 | NUR ---
No actual vomiting is seen while in ER. Patient is also seen walking around ER hallway with brisk steady gait while waiting for her boyfriend oswaldo March.
[2020-10-08] MEDS ORDERED: Z GUARD REMEDY PASTE 57 GM TUBE TOP PRN (15:45)
[2020-10-08] MEDS ORDERED: ACETAMINOPHEN 325 MG TABLET PO PRN (15:45)
[2020-10-08] MEDS ORDERED: BENZOCAINE/MENTH/CETYLPYRD LOZENGE MM PRN (16:00)
--- NOTE | 2020-10-08 16:14 | NUR ---
Pt received from ER, assessed, no acute distress, c/o shaking and "feeling like crap", still feeling nausea from not having a drink for 2 days after a month of drinking. Pt seen by ANALYTICS DIRECTOR, IV started. New orders received, will follow up accordingly. Oriented to room and unit, call light within reach, will continue to monitor for safety.
[2020-10-08] MEDS: ONDANSETRON 4 MG/2 ML VIAL IV PRN ×2 (16:26→23:07)
[2020-10-08 16:30] VITALS: BP 134/94
[2020-10-08] MEDS: LORAZEPAM 2 MG/1 ML VIAL IV PRN ×2 (17:01→20:31)
[2020-10-08] MEDS ORDERED: THIAMINE HCL IV ONE (17:30)
[2020-10-08] MEDS ORDERED: DEXTROSE 5% IV ONE (17:30)
[2020-10-08] MEDS: IV LACTATED RINGERS SOLUTION 1,000 ML IV PRN (17:55)
[2020-10-08 20:18] VITALS: BP 131/76
[2020-10-08] MEDS: PANTOPRAZOLE SODIUM 40 MG VIAL IV SCH (20:25)
--- NOTE | 2020-10-08 21:35 | NUR ---
Received pt resting in bed. AAO X4. No acute distress noted. Denies pain. CIWA assessment done, and every Q4H. IV on right AC #22 running LR 100 mL/hr. Pt complained of odor and burning in urine. Pt requested STD test. Notified Dr. Mcelroy with new orders. Safety measures maintained. Call light and personal items within reach. Will continue to monitor. Addendum: 10/09/20 at 0425 by Madhav Reyes RN As per Dr. Mcelroy, ok to give Ativan as long as pt is awake, anxious, and CIWA is at 8 and above.
[2020-10-09 04:18] VITALS: BP 125/94
[2020-10-09] MEDS: IV LACTATED RINGERS SOLUTION 1,000 ML IV PRN (04:27)
[2020-10-09 04:31] LABS: *BLOOD, URINE 1+ (NEGATIVE); *CLARITY,URINE CLOUDY (CLEAR); *COLOR,URINE YELLOW (YELLOW); *KETONES,URINE 3+ (NEGATIVE); *UROBILINOGEN,URINE 0.2 E.U./dl (NORMAL); LEUKOCYTE ESTERASE ,URINE NEGATIVE (NEGATIVE); NITRITE, URINE NEGATIVE (NEGATIVE); PH,URINE 6.5 (5.0-8.0); UGLUCOSE NEGATIVE (NEGATIVE)
--- NOTE | 2020-10-09 05:25 | NUR ---
Pt slept comfortably at night. All needs attended to promptly. CIWA assessment done Q4H. Pt had some snacks last night and this morning, tolerated well without N/V. Will endorse accordingly.
[2020-10-09 05:29] LABS: *BILIRUBIN,URIN 2+ (NEGATIVE)
[2020-10-09 06:29] LABS: BASOPHILS % (AUTO) 0.3 % (0.0-2.0); EOSINOPHILS # (AUTO) 0.1 K/uL (0.0-0.7); EOSINOPHILS % (AUTO) 1.6 % (0.0-7.0); HEMATOCRIT 35.1 % (31.2-41.9); HEMOGLOBIN 12.1 g/dL (10.9-14.3); LYMPHOCYTES # (AUTO) 0.5 K/uL (20.0-40.0); LYMPHOCYTES % (AUTO) 11.1 % (20.5-51.5); MEAN CORPUSCULAR HEMOGLOBIN 30.4 uug (24.7-32.8); MEAN CORPUSCULAR HGB CONC 35 g/dL (32.3-35.6); MEAN CORPUSCULAR VOLUME 87.9 fL (75.5-95.3); MONOCYTES # (AUTO) 0.3 K/uL (2.0-10.0); MONOCYTES % (AUTO) 6.2 % (0.0-11.0); NEUTROPHILS # (AUTO) 3.4 K/uL (1.8-8.9); NEUTROPHILS % (AUTO) 80.8 % (38.5-71.5); PLATELET COUNT (AUTO) 63 K/uL (179-408); RED BLOOD CELL COUNT(AUTO) 3.99 MIL/uL (3.63-4.92); WHITE BLOOD COUNT (AUTO) 4.2 K/uL (3.8-11.8)
[2020-10-09 06:32] LABS: BILIRUBIN,TOTAL 2.4 mg/dL (0.2-1.0); CREATININE 0.8 mg/dL (0.6-1.3); MAGNESIUM 1.9 mg/dL (1.8-2.4); POTASSIUM 3.6 mmol/L (3.5-5.1); TOTAL PROTEIN, SERUM 6.9 g/dL (6.4-8.2)
--- NOTE | 2020-10-09 07:40 | NUR ---
received patient in bed, awake and verbally responsive. No distress noted. No SOB. No complain of Nausea/vomiting. No complain of Pain or discomfort. Afebrile. kept clean and comfortable. Will continue to monitor.
[2020-10-09 07:50] LABS: PHOSPHOROUS 0.6 mg/dL (2.5-4.9)
[2020-10-09] MEDS: PANTOPRAZOLE SODIUM 40 MG VIAL IV SCH ×2 (08:22→20:30)
[2020-10-09] MEDS: MULTIVITAMINS,THERAPEUTIC TABLET PO SCH (08:22)
[2020-10-09] MEDS: FOLIC ACID 1 MG TABLET PO SCH (08:22)
[2020-10-09] MEDS: THIAMINE HCL 100 MG TABLET PO SCH (08:22)
[2020-10-09] MEDS ORDERED: NEUTRA PHOS PACKET PO ONE (10:00)
[2020-10-09] MEDS ORDERED: SODIUM PHOSPHATE MM IV ONE (10:00)
[2020-10-09] MEDS ORDERED: SODIUM PHOSPHATE MM 15 MMOL in IV NORMAL SALINE 250 ML IV SCH (10:00)
[2020-10-09] MEDS ORDERED: NORMAL SALINE IV ONE (10:00)
[2020-10-09 12:59] VITALS: BP 132/92
[2020-10-09 13:36] LABS: BACTERIA,URINE FEW /HPF (NONE SEEN); WBC,URINE 0-3 /HPF (0-3)
[2020-10-09 13:37] LABS: SQUAMOUS EPITHELIAL CELL,UR FEW /HPF (NONE SEEN)
[2020-10-09 14:03] LABS: LYMPHOCYTES % (MANUAL) 13 % (20-40); NEUTROPHILS % (MANUAL) 82 % (42-75)
[2020-10-09 14:04] LABS: EOSINOPHILS % (MANUAL) 1 % (0-8); MONOCYTES % (MANUAL) 4 % (2-10)
[2020-10-09 16:14] VITALS: BP 119/79
[2020-10-09] MEDS: LORAZEPAM 2 MG/1 ML VIAL IV PRN ×2 (16:33→20:30)
[2020-10-09] MEDS: ONDANSETRON 4 MG/2 ML VIAL IV PRN (16:43)
--- NOTE | 2020-10-09 18:33 | NUR ---
Patient in bed, asleep. No SOB noted. Afebrile. No complain of Pain noted. Zofran 4mg IV given x1 for nausea and ativan 2mg x 1 given for Anxiety. All needs attended. kept clean and comfortable. Will endorse to Oncoming Nurse.
[2020-10-09 19:00] VITALS: BP 132/95
[2020-10-10] MEDS: LORAZEPAM 2 MG/1 ML VIAL IV PRN ×2 (05:53→12:50)
--- NOTE | 2020-10-10 06:46 | NUR ---
Pt slept intermittently through the night. V/S stable on room air. Denies any acute distress or pain. No N/V. Comfort care and needs attended. Offered some chicken broth, pt tolerated, starting to improve appetite. Safety measures in place. Call light within reach. Will endorse to oncoming nurse accordingly.
--- NOTE | 2020-10-10 07:00 | NUR ---
received patient in bed, awake and verbally responsive. No distress noted. No SOB. No complain of Nausea/vomiting. No complain of Pain or discomfort. Afebrile.. Will continue to monitor. call light with in reach
[2020-10-10] MEDS: MULTIVITAMINS,THERAPEUTIC TABLET PO SCH (08:09)
[2020-10-10] MEDS: THIAMINE HCL 100 MG TABLET PO SCH (08:10)
[2020-10-10] MEDS: FOLIC ACID 1 MG TABLET PO SCH (08:10)
[2020-10-10] MEDS: PANTOPRAZOLE SODIUM 40 MG VIAL IV SCH (08:15)
[2020-10-10 09:23] LABS: BASOPHILS % (AUTO) 0.6 % (0.0-2.0); EOSINOPHILS % (AUTO) 1.5 % (0.0-7.0); HEMATOCRIT 36.3 % (31.2-41.9); HEMOGLOBIN 12.7 g/dL (10.9-14.3); LYMPHOCYTES # (AUTO) 0.6 K/uL (20.0-40.0); LYMPHOCYTES % (AUTO) 22.2 % (20.5-51.5); MEAN CORPUSCULAR HEMOGLOBIN 30.3 uug (24.7-32.8); MEAN CORPUSCULAR HGB CONC 35 g/dL (32.3-35.6); MEAN CORPUSCULAR VOLUME 86.6 fL (75.5-95.3); MONOCYTES # (AUTO) 0.2 K/uL (2.0-10.0); NEUTROPHILS # (AUTO) 1.9 K/uL (1.8-8.9); NEUTROPHILS % (AUTO) 68.7 % (38.5-71.5); PLATELET COUNT (AUTO) 50 K/uL (179-408); RED BLOOD CELL COUNT(AUTO) 4.19 MIL/uL (3.63-4.92); WHITE BLOOD COUNT (AUTO) 2.7 K/uL (3.8-11.8)
[2020-10-10 09:24] LABS: CREATININE 0.6 mg/dL (0.6-1.3); MAGNESIUM 1.7 mg/dL (1.8-2.4); POTASSIUM 2.8 mmol/L (3.5-5.1)
[2020-10-10 11:41] VITALS: BP 134/98
[2020-10-10] MEDS ORDERED: NEUTRA PHOS PACKET PO ONE (12:30)
[2020-10-10] MEDS: MAGNESIUM SULFATE/D5W 100 ML IV SCH ×4 (12:34→16:59)
[2020-10-10] MEDS: ONDANSETRON 4 MG/2 ML VIAL IV PRN (12:50)
[2020-10-10] MEDS: POTASSIUM CHLORIDE 10 MEQ, LIDOCAINE-MPF 1% 1 ML in IV DEXTROSE 5% 100 ML IV SCH ×4 (12:51→16:57)
[2020-10-10 16:09] VITALS: BP 119/84
[2020-10-10] MEDS: PANTOPRAZOLE SODIUM 40 MG TABLET.DR PO SCH (20:15)
[2020-10-10 20:24] VITALS: BP 127/93
[2020-10-11 04:20] VITALS: BP 124/92
--- NOTE | 2020-10-11 06:00 | NUR ---
Pt slept intermittently through the night. V/S stable on room air. Denies any acute distress or pain. No N/V. Safety measures in place. Call light within reach. Will endorse to oncoming nurse accordingly.
[2020-10-11] MEDS: LORAZEPAM 2 MG/1 ML VIAL IV PRN ×2 (06:23→12:24)
[2020-10-11 06:43] LABS: CREATININE 0.7 mg/dL (0.6-1.3); MAGNESIUM 2.5 mg/dL (1.8-2.4); PHOSPHOROUS 3.3 mg/dL (2.5-4.9); POTASSIUM 3.4 mmol/L (3.5-5.1)
[2020-10-11 06:47] LABS: BASOPHILS % (AUTO) 0.7 % (0.0-2.0); EOSINOPHILS # (AUTO) 0.1 K/uL (0.0-0.7); EOSINOPHILS % (AUTO) 2.5 % (0.0-7.0); HEMATOCRIT 38.1 % (31.2-41.9); HEMOGLOBIN 13.2 g/dL (10.9-14.3); LYMPHOCYTES # (AUTO) 0.6 K/uL (20.0-40.0); LYMPHOCYTES % (AUTO) 21.6 % (20.5-51.5); MEAN CORPUSCULAR HEMOGLOBIN 30.5 uug (24.7-32.8); MEAN CORPUSCULAR HGB CONC 35 g/dL (32.3-35.6); MEAN CORPUSCULAR VOLUME 88.2 fL (75.5-95.3); MONOCYTES # (AUTO) 0.2 K/uL (2.0-10.0); MONOCYTES % (AUTO) 7.7 % (0.0-11.0); NEUTROPHILS # (AUTO) 1.9 K/uL (1.8-8.9); NEUTROPHILS % (AUTO) 67.5 % (38.5-71.5); PLATELET COUNT (AUTO) 56 K/uL (179-408); RED BLOOD CELL COUNT(AUTO) 4.32 MIL/uL (3.63-4.92); WHITE BLOOD COUNT (AUTO) 2.9 K/uL (3.8-11.8)
--- NOTE | 2020-10-11 08:00 | NUR ---
Patient in bed asleep arousable to name, AOx4, on RA denied SOB or distress at this time. Denied SI/HI, hallucinations and anxiety. No tremors noted. IV on right hand flushed and patent. Safety precaution in place. Call light within reach. will monitor
[2020-10-11 08:33] VITALS: BP 122/89
[2020-10-11] MEDS: MULTIVITAMINS,THERAPEUTIC TABLET PO SCH (08:57)
[2020-10-11] MEDS: FOLIC ACID 1 MG TABLET PO SCH (08:57)
[2020-10-11] MEDS: THIAMINE HCL 100 MG TABLET PO SCH (08:58)
[2020-10-11] MEDS: PANTOPRAZOLE SODIUM 40 MG TABLET.DR PO SCH (08:58)
[2020-10-11] MEDS ORDERED: POTASSIUM CHLORIDE 20 MEQ TAB.PRT.SR PO ONE (11:45)
[2020-10-11 11:50] LABS: BAND % (MANUAL) 11 % (0-10); EOSINOPHILS % (MANUAL) 2 % (0-8); LYMPHOCYTES % (MANUAL) 21 % (20-40); MONOCYTES % (MANUAL) 8 % (2-10); NEUTROPHILS % (MANUAL) 58 % (42-75)
[2020-10-11 12:33] VITALS: BP 110/82
[2020-10-11] MEDS ORDERED: MULT-24 PO (12:49)
[2020-10-11] MEDS ORDERED: Folic Acid PO (12:49)
[2020-10-11] MEDS ORDERED: THIA100T13 PO (12:49)
--- NOTE | 2020-10-11 14:11 | NUR ---
Pt left unit via wheelchair accompanied by RUFINA Holguin AOx4 denied any pain. Patient stable, no tremors and sweats noted. Denied SI and hallucinations, Patient stated that she is good to go home and boyfriend will milk pickup truck driver. DC forms and instructions given to patient, verbalized understanding. IV on right hand and ID band removed. Belongings list signed and all accounted for.
--- NOTE | 2020-10-11 16:15 | NUR ---
still awaiting for urine result. Patient wants to be called when result comes in and her number is [phone]. Also informed patient that she can call hospital and gave number
[2020-10-14 02:33] LABS: *GC NAA Negative (Negative); *TRIC.VAG. NAA Negative (Negative)
== END 2020-10-11 15:45 | disposition home or self-care (01) | DRG 775 ==
LOC: ER 10:23 → TELE3 14:42 → MEDSURG3 15:00
PROVIDERS: ADMIT Nurse Practitioner Acute Care; ATTEND Nurse Practitioner Acute Care
DX: F10.232 Alcohol dependence with withdrawal with perceptual disturbance (principal); Y90.0 Blood alcohol level of less than 20 mg/100 ml; K70.9 Alcoholic liver disease, unspecified; E28.2 Polycystic ovarian syndrome; D69.59 Other secondary thrombocytopenia; E83.39 Other disorders of phosphorus metabolism; E83.42 Hypomagnesemia; E87.6 Hypokalemia; F10.239 Alcohol dependence with withdrawal, unspecified; F41.9 Anxiety disorder, unspecified; K22.6 Gastro-esophageal laceration-hemorrhage syndrome; R74.01 Elevation of levels of liver transaminase levels; F32.9 Major depressive disorder, single episode, unspecified; R40.2362 Coma scale, best motor response, obeys commands, at arrival to emergency department; R40.2142 Coma scale, eyes open, spontaneous, at arrival to emergency department; R40.2252 Coma scale, best verbal response, oriented, at arrival to emergency department; R56.9 Unspecified convulsions
CPT/HCPCS: 36415; 70030-TC; 71045; 83690; 83735; 84100; 85025; 86803; 87491; 87806; 93005; A4663; C9113; G0378; G0480; J2001; J2060; J2405; J3411; J3475; J3480; J3490; J7030; J7050; J7060; J7120

== ENCOUNTER 2020-12-29 22:18 | Emergency (ER) | payer OTHER ==
[~2020-12-29] VITALS: Ht 167.6 cm; Wt 68.0 kg
[~2020-12-29 22:18] MED LIST changes: +BIRTH CONTROL; -FOLI1TAB16 PO; +Folic Acid PO; -LORA2TAB95 PO
--- NOTE | 2020-12-29 22:30 | NUR ---
Patient is resting in bed, no apparent distress. Difficult to arouse. Responses to painful stimuli.
[2020-12-29 22:57] LABS: BASOPHILS # (AUTO) 0.1 K/uL (0.0-8.0); BASOPHILS % (AUTO) 3.4 % (0.0-2.0); EOSINOPHILS % (AUTO) 0.6 % (0.0-7.0); LYMPHOCYTES # (AUTO) 1.1 K/uL (20.0-40.0); MEAN CORPUSCULAR HEMOGLOBIN 32.5 uug (24.7-32.8); MEAN CORPUSCULAR HGB CONC 34 g/dL (32.3-35.6); MONOCYTES # (AUTO) 0.3 K/uL (2.0-10.0); MONOCYTES % (AUTO) 10.3 % (0.0-11.0); NEUTROPHILS # (AUTO) 1.2 K/uL (1.8-8.9); NEUTROPHILS % (AUTO) 45.7 % (38.5-71.5); PLATELET COUNT (AUTO) 341 K/uL (179-408); RED BLOOD CELL COUNT(AUTO) 4.33 MIL/uL (3.63-4.92); WHITE BLOOD COUNT (AUTO) 2.7 K/uL (3.8-11.8)
[2020-12-29 23:10] LABS: ETHANOL 519 MG/DL (0-0)
[2020-12-29 23:11] LABS: ALANINE AMINOTRANSFERASE 177 U/L (14-59); ALKALINE PHOSPHATASE 109 U/L (50-136); ASPARTATE AMINOTRANSFERASE 452 U/L (15-37); BILIRUBIN,DIRECT 0.6 mg/dL (0.0-0.2); BILIRUBIN,TOTAL 1.1 mg/dL (0.2-1.0); CARBON DIOXIDE 25 mmol/L (21-32); CHLORIDE 106 mmol/L (98-107); CREATININE 0.7 mg/dL (0.6-1.3); GLUCOSE 86 mg/dL (74-106); POTASSIUM 3.1 mmol/L (3.5-5.1); TOTAL PROTEIN, SERUM 7.3 g/dL (6.4-8.2); UREA NITROGEN, BLOOD 8 mg/dL (7-18)
[2020-12-29 23:16] LABS: ACETAMINOPHEN < 2.0 ug/mL (10-30)
[2020-12-29] MEDS: IV NORMAL SALINE 1000 ML BAG IV ONE (23:20)
--- NOTE | 2020-12-29 23:45 | NUR ---
Patient is resting in bed, no apparent distress noted, lethargic.
--- NOTE | 2020-12-30 02:30 | NUR ---
Patient is resting on the bed, no apparent distress noted.
--- NOTE | 2020-12-30 05:00 | NUR ---
Patient is now awake, alert, and orientated. Patient asked for friend Joaquim Caceres to be able to pick her up. Joaquim Caceres was called, stating he will be here to tile picker the patient soon.
[2020-12-30 05:37] VITALS: BP 110/74
--- NOTE | 2020-12-30 05:37 | NUR ---
Patient's friend Joaquim Caceres arrived to bead picker patient. Patient discharged to home in stable condition. Written and verbal after care instructions given. Patient verbalizes understanding of instructions. Stressed follow up or return to ER for worsening s/s. Patient ambulates well without difficulty. Patient took all belongings with them.
== END 2020-12-30 05:37 | disposition home or self-care (01) ==
LOC: ER 22:20
DX: F10.229 Alcohol dependence with intoxication, unspecified (principal); Y90.8 Blood alcohol level of 240 mg/100 ml or more; D72.819 Decreased white blood cell count, unspecified; Z82.49 Family history of ischemic heart disease and other diseases of the circulatory system; R79.89 Other specified abnormal findings of blood chemistry; Z88.8 Allergy status to other drugs, medicaments and biological substances; F19.10 Other psychoactive substance abuse, uncomplicated
CPT/HCPCS: 36415; 85025; A4663; G0480; J7030

== ENCOUNTER 2022-04-28 05:12 | Inpatient (IN) | payer OTHER ==
[~2022-04-28] VITALS: Ht 175.3 cm; Wt 82.2 kg
[2022-04-28] MEDS ORDERED: ONDANSETRON 4 MG/2 ML VIAL IV ONE ×2 (06:15→08:45)
[2022-04-28] MEDS ORDERED: IV NORMAL SALINE 1000 ML BAG IV ONE (06:15)
[2022-04-28] MEDS ORDERED: ONDANSETRON 4 MG/2 ML VIAL ONE ×2 (06:16→08:38)
[2022-04-28 06:47] LABS: HEMATOCRIT 32.9 % (31.2-41.9); MEAN CORPUSCULAR HEMOGLOBIN 28.3 uug (24.7-32.8); MEAN CORPUSCULAR VOLUME 84.2 fL (75.5-95.3); PLATELET COUNT (AUTO) 251 K/uL (179-408)
--- NOTE | 2022-04-28 06:54 | NUR ---
Patient is a/ox4, NAD noted. Patient is able to walk with steady gait
[2022-04-28 06:55] LABS: LIPASE 142 U/L (73-393)
[2022-04-28 06:57] LABS: CREATININE 0.6 mg/dL (0.6-1.3); POTASSIUM 3.3 mmol/L (3.5-5.1)
[2022-04-28 07:05] LABS: *BILIRUBIN,URIN 1+ (NEGATIVE); *BLOOD, URINE NEGATIVE (NEGATIVE); *CLARITY,URINE CLEAR (CLEAR); *COLOR,URINE YELLOW (YELLOW); *KETONES,URINE NEGATIVE (NEGATIVE); *UROBILINOGEN,URINE >=8.0 E.U./dl (NORMAL); LEUKOCYTE ESTERASE ,URINE NEGATIVE (NEGATIVE); NITRITE, URINE NEGATIVE (NEGATIVE); PH,URINE 7.5 (5.0-8.0); UGLUCOSE NEGATIVE (NEGATIVE)
[2022-04-28 07:08] LABS: BILIRUBIN,DIRECT 1.4 mg/dL (0.0-0.2); BILIRUBIN,TOTAL 2.2 mg/dL (0.2-1.0); TOTAL PROTEIN, SERUM 7.8 g/dL (6.4-8.2)
[2022-04-28 07:09] LABS: *URINE HCG, QUAL NEGATIVE (NEGATIVE)
[2022-04-28 07:15] LABS: *AMPHETAMINE, URINE NEGATIVE (NEGATIVE); *CANNABINOID, URINE NEGATIVE (NEGATIVE); *COCCAINE, URINE NEGATIVE (NEGATIVE); *OPIATE, URINE NEGATIVE (NEGATIVE); *PHENCYCLIDINE SCREEN,URINE NEGATIVE (NEGATIVE)
[2022-04-28 07:45] LABS: BACTERIA,URINE MODERATE /HPF (NONE SEEN); RBC,URINE 0-3 /HPF (0-3); SQUAMOUS EPITHELIAL CELL,UR MODERATE /HPF (NONE SEEN); WBC,URINE 0-3 /HPF (0-3)
[2022-04-28] MEDS ORDERED: LORAZEPAM 0.5 MG TABLET PO ONE (08:30)
[2022-04-28] MEDS ORDERED: LORAZEPAM 2 MG/1 ML VIAL ONE ×3 (08:37→15:04)
[2022-04-28] MEDS ORDERED: LORAZEPAM 2 MG/1 ML VIAL IV ONE ×3 (08:45→15:15)
[2022-04-28] MEDS ORDERED: PANTOPRAZOLE SODIUM 40 MG VIAL IV ONE (09:15)
[2022-04-28] MEDS ORDERED: LIDOCAINE VISCUS 2% 15 ML UDC MM ONE (09:15)
[2022-04-28] MEDS ORDERED: MAG HYDROX/AL HYDROX/SIMETH 30 ML LIQUID UDC PO ONE (09:15)
[2022-04-28] MEDS ORDERED: FAMOTIDINE. 20 MG/2 ML VIAL IV ONE ×2 (09:15→09:23)
[2022-04-28] MEDS ORDERED: PANTOPRAZOLE SODIUM 40 MG VIAL ONE (09:22)
[2022-04-28] MEDS ORDERED: LIDOCAINE VISCUS 2% 15 ML UDC ONE (09:23)
[2022-04-28] MEDS ORDERED: MAG HYDROX/AL HYDROX/SIMETH 30 ML LIQUID UDC ONE (09:23)
[2022-04-28] MEDS ORDERED: METOCLOPRAMIDE HCL 10 MG/2 ML VIAL IV ONE (11:15)
[2022-04-28] MEDS ORDERED: METOCLOPRAMIDE HCL 10 MG/2 ML VIAL ONE (11:16)
--- NOTE | 2022-04-28 15:37 | NUR ---
REPORT WAS GIVEN TO WAISTBAND SETTER LOCKSTITCH. PT IS GOING TO BE ADMITED TO TELEMETRY FLOOR, ROOM #308.
--- NOTE | 2022-04-28 16:53 | NUR ---
PT WAS TRANSFERED TO TELEMETRY ROOM #308.
[2022-04-28] MEDS ORDERED: MORPHINE SULFATE 2 MG/1 ML DISP.SYRIN IV PRN (17:00)
[2022-04-28] MEDS ORDERED: POTASSIUM CHLORIDE 20 MEQ in IV 1/2NS 1000 ML 1,000 ML IV PRN (17:00)
--- NOTE | 2022-04-28 17:00 | NUR ---
ADMITTED. ORIENTED TO SURROUNDINGS. C/O ABD PAIN. DR. BEST NOTIFIED. ORDERS RECEIVED.
[2022-04-28 17:09] VITALS: BP 128/84
[2022-04-28] MEDS ORDERED: PIPERACILLIN SODIUM/TAZOBACTAM 3.375 G in IV DEXTROSE 5% 100 ML IV SCH (18:00)
[2022-04-28] MEDS ORDERED: PIPERACILLIN SODIUM/TAZOBACTAM 3.375 G in IV DEXTROSE 5% 50 ML IV SCH (18:00)
[2022-04-28] MEDS: LORAZEPAM 2 MG/1 ML VIAL IV PRN (18:18)
[2022-04-28 20:09] VITALS: BP 125/71
[2022-04-28] MEDS: PIPERACILLIN SODIUM/TAZOBACTAM 3.375 G in IV DEXTROSE 5% 100 ML IV SCH (21:06)
[2022-04-28] MEDS: MORPHINE SULFATE 2 MG/1 ML DISP.SYRIN IV PRN (21:22)
[2022-04-28] MEDS ORDERED: IV DEXTROSE 5%-0.2% NS 1,000 ML IV PRN (22:45)
[2022-04-29] VITALS: BP 121/55
[2022-04-29] MEDS: IV D5 1/2 NS 1000 ML 1,000 ML IV PRN (00:03)
[2022-04-29] MEDS: MORPHINE SULFATE 2 MG/1 ML DISP.SYRIN IV PRN ×4 (01:31→21:47)
[2022-04-29] MEDS: ONDANSETRON 4 MG/2 ML VIAL IV PRN ×3 (01:41→18:42)
[2022-04-29] MEDS: LORAZEPAM 2 MG/1 ML VIAL IV PRN (03:44)
[2022-04-29 04:12] VITALS: BP 130/66
--- NOTE | 2022-04-29 05:55 | NUR ---
Slept intermittently. Denies SOB. Able to make needs known. Ativan given PRN for anxiety. Morphine given for abdominal pain. Tolerated all medications given. IV site intact, running ordered fluids. Safety maintained. Will endorse to day shift.
[2022-04-29] MEDS: PIPERACILLIN SODIUM/TAZOBACTAM 3.375 G in IV DEXTROSE 5% 100 ML IV SCH ×3 (06:05→21:32)
[2022-04-29 06:45] LABS: HEMATOCRIT 27.4 % (31.2-41.9); MEAN CORPUSCULAR HEMOGLOBIN 28.3 uug (24.7-32.8); MEAN CORPUSCULAR VOLUME 83.7 fL (75.5-95.3); PLATELET COUNT (AUTO) 135 K/uL (179-408)
[2022-04-29 07:20] LABS: BILIRUBIN,TOTAL 4.3 mg/dL (0.2-1.0); CREATININE 0.6 mg/dL (0.6-1.3); MAGNESIUM 1.5 mg/dL (1.8-2.4); POTASSIUM 3.3 mmol/L (3.5-5.1); TOTAL PROTEIN, SERUM 6.6 g/dL (6.4-8.2)
[2022-04-29] MEDS: FOLIC ACID 1 MG TABLET PO SCH (08:38)
[2022-04-29] MEDS: PANTOPRAZOLE SODIUM 40 MG VIAL IV SCH (08:38)
[2022-04-29] MEDS: THIAMINE HCL 100 MG TABLET PO SCH (08:44)
[2022-04-29] MEDS ORDERED: POTASSIUM CHLORIDE 20 MEQ TAB.PRT.SR PO ONE (10:00)
[2022-04-29] MEDS: MAGNESIUM SULFATE/D5W 100 ML IV SCH ×2 (10:13→12:32)
[2022-04-29 11:26] VITALS: BP 127/98
[2022-04-29] MEDS ORDERED: ONDA4TAB11 PO (13:18)
[2022-04-29] MEDS ORDERED: CYAN-51 PO (13:18)
[2022-04-29] MEDS ORDERED: SENN-261 PO (13:18)
[2022-04-29] MEDS ORDERED: PROP20TA7 PO (13:18)
[2022-04-29] MEDS ORDERED: TRAM50TA2 PO (13:18)
[2022-04-29] MEDS ORDERED: POLY17PO4 PO (13:18)
[2022-04-29] MEDS ORDERED: RIFA550T PO (13:18)
[2022-04-29] MEDS ORDERED: LEVO125T8 PO (13:18)
[2022-04-29] MEDS ORDERED: LACT10SO58 PO (13:18)
[2022-04-29] MEDS ORDERED: PANT40TA49 PO (13:18)
--- NOTE | 2022-04-29 14:16 | NUR ---
Discharge planning consult requested for homelessness. Pt. is a 36-year-old female who was admitted to [facility] on 04/28/2022 due to colitis and alcohol withdrawal. Upon consult, pt. is alert and oriented x4. Pt. presents with a dysphoric mood and congruent affect. Pt. presents with appropriate eye contact and was cooperative throughout the interview. party planner explored pt. 's living situation. Pt. stated she was living at [facility] in [place] but was discharged. Pt. stated she has been homeless for five years. Pt. stated she could not go back to [facility]. party planner offered TAP card and homeless resources. Pt. stated she already had a TAP card. [place] [address] ([phone]) upon discharge. Pt. will be alert and oriented x4 at discharge. Homeless waiver was signed and given to the patient and a copy was placed in the chart. party planner explored pt. 's substance use history. Pt. stated she had an alcohol issue but has not consumed alcohol in a month. party planner directed pt. to a substance use clinic [facility] [address] [place] [phone] ([phone]). Pt. accepted the resources. party planner explored pt.s suicidal/homicidal ideation. Pt. denied suicidal and homicidal ideation.
[2022-04-29 15:08] VITALS: BP 124/91
[2022-04-29] MEDS ORDERED: MORPHINE SULFATE 2 MG/1 ML DISP.SYRIN IV ONE (18:45)
--- NOTE | 2022-04-29 19:02 | NUR ---
Dr. Lewis assessed patient and ordered one additional one time dose of morphine for severe abd pain and zofran.
[2022-04-29 20:00] VITALS: BP 126/94
--- NOTE | 2022-04-29 22:00 | NUR ---
Patient AALOx4.C/o abd'l pain .Morphine given as ordered with relieved. No acute distress noted.On Ra.Midline on right upper arm patent and intact with IVF running at 80 ml/hr.Adm .IV ATB as ordered.Tolerated well.No a/r noted.Ambulates to bathroom. Voided well.Call light with in reach.Will continue to monitor.
[2022-04-30] MEDS: LORAZEPAM 2 MG/1 ML VIAL IV PRN ×2 (03:25→23:26)
[2022-04-30] MEDS: ONDANSETRON 4 MG/2 ML VIAL IV PRN ×4 (03:29→20:52)
[2022-04-30] MEDS: ACETAMINOPHEN 325 MG TABLET PO PRN (03:52)
[2022-04-30 04:00] VITALS: BP 132/95
[2022-04-30] MEDS: IV D5 1/2 NS 1000 ML 1,000 ML IV PRN ×2 (04:28→18:43)
[2022-04-30] MEDS: PIPERACILLIN SODIUM/TAZOBACTAM 3.375 G in IV DEXTROSE 5% 100 ML IV SCH ×3 (06:03→21:17)
[2022-04-30 06:37] LABS: HEMATOCRIT 28.3 % (31.2-41.9); MEAN CORPUSCULAR HEMOGLOBIN 28.4 uug (24.7-32.8); MEAN CORPUSCULAR VOLUME 84.5 fL (75.5-95.3); PLATELET COUNT (AUTO) 111 K/uL (179-408)
[2022-04-30 06:56] LABS: BILIRUBIN,TOTAL 3.2 mg/dL (0.2-1.0); CREATININE 0.6 mg/dL (0.6-1.3); MAGNESIUM 1.7 mg/dL (1.8-2.4); PHOSPHOROUS 2.4 mg/dL (2.5-4.9); POTASSIUM 3.5 mmol/L (3.5-5.1); TOTAL PROTEIN, SERUM 7.1 g/dL (6.4-8.2)
[2022-04-30] MEDS: MORPHINE SULFATE 2 MG/1 ML DISP.SYRIN IV PRN ×4 (09:00→21:06)
[2022-04-30] MEDS: PANTOPRAZOLE SODIUM 40 MG VIAL IV SCH (09:00)
[2022-04-30] MEDS: THIAMINE HCL 100 MG TABLET PO SCH (09:01)
[2022-04-30] MEDS: FOLIC ACID 1 MG TABLET PO SCH (09:01)
--- NOTE | 2022-04-30 11:20 | NUR ---
Patient signed consent for repeat CT with contrast.
[2022-04-30] MEDS ORDERED: SWABABLE VALVE TRANSFER SET EA MC ONE (11:27)
[2022-04-30] MEDS ORDERED: IV NORMAL SALINE 250 ML IV ONE (11:27)
[2022-04-30] MEDS ORDERED: IOHEXOL 300MG/ML 100 ML INFUS..BTL ONE (11:27)
[2022-04-30 11:28] VITALS: BP 120/85
--- NOTE | 2022-04-30 12:00 | NUR ---
patient taken to CT, transported with wheelchair.
[2022-04-30] MEDS ORDERED: MAGNESIUM OXIDE 400 MG TABLET PO ONE (14:00)
[2022-04-30] MEDS ORDERED: POTASSIUM CHLORIDE 10 MEQ TAB.PRT.SR PO SCH (14:15)
[2022-04-30 15:19] VITALS: BP 123/89
[2022-04-30] MEDS ORDERED: NEUTRA PHOS PACKET PO ONE (16:00)
--- NOTE | 2022-04-30 16:03 | NUR ---
MD made aware patient requesting lactulose for ammonia levels, per patient she has taken this before. orders for Lactulose noted and carried out.
[2022-04-30] MEDS: LACTULOSE 20 G/30 ML LIQUID UDC PO SCH (16:50)
--- NOTE | 2022-04-30 18:00 | NUR ---
Patient remained in NSR and sinus tachy throughout shift, no cardiac acute discomfort.
[2022-04-30 21:02] VITALS: BP 125/87
[2022-04-30] MEDS: PHENYLEPHRINE/SHARK LIVER/CCB 1 EACH SUPP.RECT RC SCH (21:30)
--- NOTE | 2022-04-30 22:13 | NUR ---
Patient seen and examined by with new order received. PRep -hem supp/pheylephrine not given d/t not available at this time. Charge nurse and stonework supervisor made aware.Snacks provided .Patient c/o nausea and abd'l pain. Zofran and Morphine 2mg IVP given.DC Tele.Call light with in reach. Will continue to monitor.
[2022-05-01] MEDS: MORPHINE SULFATE 4 MG/1 ML DISP.SYRIN IV PRN ×4 (02:15→20:31)
[2022-05-01 04:40] VITALS: BP 113/82
[2022-05-01] MEDS: PIPERACILLIN SODIUM/TAZOBACTAM 3.375 G in IV DEXTROSE 5% 100 ML IV SCH ×3 (05:18→21:15)
[2022-05-01] MEDS: PANTOPRAZOLE SODIUM 40 MG TABLET.DR PO SCH (06:06)
[2022-05-01 07:01] LABS: HEMATOCRIT 28.9 % (31.2-41.9); MEAN CORPUSCULAR HEMOGLOBIN 28.7 uug (24.7-32.8); MEAN CORPUSCULAR VOLUME 86.6 fL (75.5-95.3)
[2022-05-01 07:29] LABS: BILIRUBIN,TOTAL 2.4 mg/dL (0.2-1.0); CREATININE 0.6 mg/dL (0.6-1.3); MAGNESIUM 1.8 mg/dL (1.8-2.4); PHOSPHOROUS 3.6 mg/dL (2.5-4.9); POTASSIUM 3.3 mmol/L (3.5-5.1)
[2022-05-01 08:01] LABS: PLATELET COUNT (AUTO) 80 K/uL (179-408)
[2022-05-01 08:30] LABS: CREATININE 0.6 mg/dL (0.6-1.3); MAGNESIUM 1.8 mg/dL (1.8-2.4); PHOSPHOROUS 3.6 mg/dL (2.5-4.9); POTASSIUM 3.5 mmol/L (3.5-5.1)
[2022-05-01] MEDS: THIAMINE HCL 100 MG TABLET PO SCH (09:06)
[2022-05-01] MEDS: FOLIC ACID 1 MG TABLET PO SCH (09:06)
[2022-05-01] MEDS: LACTULOSE 20 G/30 ML LIQUID UDC PO SCH (09:06)
[2022-05-01 11:30] VITALS: BP 113/83
[2022-05-01] MEDS ORDERED: POTASSIUM CHLORIDE 20 MEQ TAB.PRT.SR PO ONE (14:15)
[2022-05-01] MEDS: LORAZEPAM 2 MG/1 ML VIAL IV PRN (14:57)
[2022-05-01 15:07] VITALS: BP 114/78
[2022-05-01] MEDS: ONDANSETRON 4 MG/2 ML VIAL IV PRN (17:29)
[2022-05-01] MEDS: IV D5 1/2 NS 1000 ML 1,000 ML IV PRN (17:31)
--- NOTE | 2022-05-01 18:40 | NUR ---
No acute distress identified. SW consult d/t homelessness. all needs attended. all due meds given. will endorse to the next shift for continuity of care.
--- NOTE | 2022-05-01 19:00 | NUR ---
Received patine on bed, awake, no shortness of breath, on room air, no complaint of pain at this time, with ongoing IVF D5 1/2 NS 1L at 80cc/hr. Safety precautions provided, call light placed within reach.
[2022-05-01 20:16] VITALS: BP 107/79
[2022-05-01] MEDS: PHENYLEPHRINE/SHARK LIVER/CCB 1 EACH SUPP.RECT RC SCH (20:20)
[2022-05-01] MEDS: LORAZEPAM 1 MG TABLET PO PRN (21:27)
[2022-05-02] MEDS: ACETAMINOPHEN 325 MG TABLET PO PRN (01:29)
[2022-05-02] MEDS: ONDANSETRON 4 MG/2 ML VIAL IV PRN ×2 (01:46→18:47)
[2022-05-02] MEDS: MORPHINE SULFATE 4 MG/1 ML DISP.SYRIN IV PRN ×5 (01:46→22:13)
--- NOTE | 2022-05-02 02:00 | NUR ---
Complaint of itchiness of whole body, claimed she saw ants in her bed. All linen changed, assisted for warm sponge bath provided. Lotion applied. Relieved after an hour.
[2022-05-02 04:28] VITALS: BP 118/80
[2022-05-02] MEDS: PIPERACILLIN SODIUM/TAZOBACTAM 3.375 G in IV DEXTROSE 5% 100 ML IV SCH (05:31)
[2022-05-02] MEDS: LORAZEPAM 1 MG TABLET PO PRN ×2 (05:52→19:41)
[2022-05-02] MEDS: PANTOPRAZOLE SODIUM 40 MG TABLET.DR PO SCH (06:01)
--- NOTE | 2022-05-02 06:38 | NUR ---
Slept intermittently, consistently requesting for Morphine IV, given 3x as PRN within the shift. requesting for Ativan given 2x within the shift. Patient claimed, she can not sleep and thinking the whole night..
[2022-05-02 06:44] LABS: HEMATOCRIT 29.1 % (31.2-41.9); MEAN CORPUSCULAR HEMOGLOBIN 28.5 uug (24.7-32.8); MEAN CORPUSCULAR VOLUME 85.6 fL (75.5-95.3); PLATELET COUNT (AUTO) 98 K/uL (179-408)
[2022-05-02 07:17] LABS: BILIRUBIN,TOTAL 2.4 mg/dL (0.2-1.0); CREATININE 0.6 mg/dL (0.6-1.3); MAGNESIUM 1.8 mg/dL (1.8-2.4); POTASSIUM 3.7 mmol/L (3.5-5.1); TOTAL PROTEIN, SERUM 7.3 g/dL (6.4-8.2)
[2022-05-02] MEDS: THIAMINE HCL 100 MG TABLET PO SCH (08:43)
[2022-05-02] MEDS: FOLIC ACID 1 MG TABLET PO SCH (08:43)
[2022-05-02] MEDS: LACTULOSE 20 G/30 ML LIQUID UDC PO SCH (08:45)
[2022-05-02] MEDS: IV D5 1/2 NS 1000 ML 1,000 ML IV PRN (09:52)
--- NOTE | 2022-05-02 10:17 | NUR ---
landscape architect and planner followed-up with placement regarding placement concerns. Pt. stated she wanted a recuperative care. Pt. stated that she came from [facility] ([phone]) and wanted to return or be placed at a different recuperative care. landscape architect and planner called [facility] ([phone]) and spoke with Brett. Brett ([phone]) stated that the hospital would need to pay for the Recuperative care if the pt. wanted to return. landscape architect and planner was unable to refer the pt. to this recuperative care.
--- NOTE | 2022-05-02 11:04 | NUR ---
alert and oriented x4, denies sob or chest pain, comfortably watching tv. iv hydration infusing as ordered. no ss of infiltration or phlebitis on site. brought in more belongings inventoried by manager core and patient, brought in home medication endorsed to pharmacy and a bottle of vodka which is kept in contraband locker.
[2022-05-02 11:47] VITALS: BP 110/80
[2022-05-02] MEDS: METRONIDAZOLE 500 MG TABLET PO SCH ×2 (13:32→21:02)
[2022-05-02 16:00] VITALS: BP 116/82
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
--- NOTE | 2022-05-02 19:00 | NUR ---
Received patient awake, No complaint of pain at this time. No shortness of breath. Safety precautions provided, Call light place within reach.
--- NOTE | 2022-05-02 19:40 | NUR ---
Patient is agitated, went out of the room and crying, stated she was so upset, the doctor went to her room 3 minutes ago, patient claimed this doctor was saying words that made her upset and cried. Patient can`t say who was that doctor. She has only description of how the doctors looks like. Reassured patient for safety, comfort measures provided, Ativan 1mg PO given.
[2022-05-02 20:00] VITALS: BP 115/77
[2022-05-02] MEDS: PHENYLEPHRINE/SHARK LIVER/CCB 1 EACH SUPP.RECT RC SCH (21:16)
--- NOTE | 2022-05-02 21:30 | NUR ---
Patient in calm behavior in her bed, requested for snacks, snacks given as requested.
--- NOTE | 2022-05-02 23:09 | NUR ---
Patient asleep at this time.
[2022-05-03] MEDS: MORPHINE SULFATE 4 MG/1 ML DISP.SYRIN IV PRN ×2 (01:28→05:54)
--- NOTE | 2022-05-03 01:28 | NUR ---
patient awake, complaint again about the doctor who made her upset. Complaint of pain at the abdomen, requested for Morphine 4mg Iv, given.
--- NOTE | 2022-05-03 02:00 | NUR ---
Sleeping at this time.
[2022-05-03 04:00] VITALS: BP 110/77
[2022-05-03] MEDS: METRONIDAZOLE 500 MG TABLET PO SCH ×2 (05:46→13:40)
--- NOTE | 2022-05-03 06:00 | NUR ---
Awake, complaint of pain at the abdomen, requested for morphine, 4mg IV given. Due meds given, patient went back to sleep.
[2022-05-03] MEDS: PANTOPRAZOLE SODIUM 40 MG TABLET.DR PO SCH (06:06)
--- NOTE | 2022-05-03 06:11 | NUR ---
For continuity of care, To followup social worker palliative care regarding discharge plan, patient wants to go home.
[2022-05-03] MEDS: THIAMINE HCL 100 MG TABLET PO SCH (08:45)
[2022-05-03] MEDS: FOLIC ACID 1 MG TABLET PO SCH (08:45)
[2022-05-03] MEDS: IV D5 1/2 NS 1000 ML 1,000 ML IV PRN (08:46)
[2022-05-03] MEDS: LACTULOSE 20 G/30 ML LIQUID UDC PO SCH (08:57)
--- NOTE | 2022-05-03 09:00 | NUR ---
Called Felix for mri re mri today. per felix, prefer to have mri w contrast done on the same day as patient's hemodialysis. Patient's last hd was yesterday. OCTAVIA Verma on the floor rounding and made aware and okayed for pt to have mri tomorrow morning, npo except meds after midnight. Called nuclear medicine re bone scan but no answer, will call again later. Patient and dtr at bedside made aware. Addendum: 05/03/22 at 0957 by NAATLI SMITH RN charted for the wrong patient.
[2022-05-03] MEDS ORDERED: HYDROCODONE/APAP 5-325MG TABLET PO PRN (10:00)
--- NOTE | 2022-05-03 10:00 | NUR ---
SW on the floor, spoke with patient and gave address [facility] [address] [place], [address] ([phone]) for patient's discharge. Per Rj, patient has a tab card and does not need another one at this time.
--- NOTE | 2022-05-03 11:18 | NUR ---
seen and examined by dr medina no new order received.
[2022-05-03 11:28] VITALS: BP 126/88
[2022-05-03] MEDS ORDERED: LACT10SO58 PO (11:41)
[2022-05-03] MEDS ORDERED: CYAN-51 PO (11:41)
[2022-05-03] MEDS ORDERED: LEVO125T8 PO (11:41)
[2022-05-03] MEDS ORDERED: RIFA550T PO (11:41)
[2022-05-03] MEDS ORDERED: PROP20TA7 PO (11:41)
[2022-05-03] MEDS ORDERED: ONDA4TAB11 PO (11:41)
[2022-05-03] MEDS ORDERED: PANT40TA49 PO (11:41)
[2022-05-03] MEDS ORDERED: METR500T PO (11:43)
[2022-05-03] MEDS ORDERED: THIA100T13 PO (11:43)
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
[2022-05-03] MEDS ORDERED: FLUC150T PO (13:52)
--- NOTE | 2022-05-03 14:23 | NUR ---
patient for discharge. explained discharge instructions by md and she verbalized understanding. removed deepa midline and id band. no bleeding noted. obtained home meds from rx and given to patient. all personal belongings returned to the patient.
--- NOTE | 2022-05-03 15:20 | NUR ---
pt left ambulatory with all personal belongings intact.
== END 2022-05-03 15:20 | disposition home or self-care (01) | DRG 775 ==
LOC: ER 05:17 → TELE3 16:31 → MEDSURG3 04-30 19:45
PROVIDERS: ADMIT Internal Medicine; ATTEND Nurse Practitioner Acute Care
PROC: B546ZZA Ultrasonography of Right Subclavian Vein, Guidance (ICD-10-PCS; principal; 2022-04-28)
PROC: 05H533Z Insertion of Infusion Device into Right Subclavian Vein, Percutaneous Approach (ICD-10-PCS; principal; 2022-04-28)
DX: F10.239 Alcohol dependence with withdrawal, unspecified (principal); F10.229 Alcohol dependence with intoxication, unspecified; D69.6 Thrombocytopenia, unspecified; A04.9 Bacterial intestinal infection, unspecified; K70.30 Alcoholic cirrhosis of liver without ascites; F31.9 Bipolar disorder, unspecified; D64.9 Anemia, unspecified; E87.6 Hypokalemia; Y90.7 Blood alcohol level of 200-239 mg/100 ml; F41.9 Anxiety disorder, unspecified; Z20.822 Contact with and (suspected) exposure to COVID-19; Z90.49 Acquired absence of other specified parts of digestive tract; K76.0 Fatty (change of) liver, not elsewhere classified; R74.01 Elevation of levels of liver transaminase levels; R94.31 Abnormal electrocardiogram [ECG] [EKG]; E66.9 Obesity, unspecified; Z68.26 Body mass index [BMI] 26.0-26.9, adult; E80.6 Other disorders of bilirubin metabolism; K64.4 Residual hemorrhoidal skin tags; Z59.00 Homelessness unspecified; K59.00 Constipation, unspecified
CPT/HCPCS: 36415; 83690; 83735; 84100; 84703; 85025; 87086; 93005; C9113; G0378; G0480; J2060; J2270; J2405; J2543; J2765; J3475; J3480; J3490; J7040; Q9967

== ENCOUNTER 2022-05-13 18:32 | Inpatient (IN) | payer OTHER ==
[~2022-05-13] VITALS: Ht 175.3 cm; Wt 77.1 kg
[~2022-05-13 18:32] MED LIST changes: -BIRTH CONTROL; +CYAN-51 PO; +FLUC150T PO; -Folic Acid PO; +LACT10SO58 PO; +LEVO125T8 PO; +METR500T PO; -MULT-24 PO; +ONDA4TAB11 PO; +PANT40TA49 PO; +POLY17PO4 PO; +PROP20TA7 PO; +RIFA550T PO; +SENN-261 PO
--- NOTE | 2022-05-13 20:37 | NUR ---
Dr Liz at bedside, MSE in progress.
[2022-05-13] MEDS ORDERED: IV NORMAL SALINE 1000 ML BAG IV ONE (20:45)
[2022-05-13] MEDS ORDERED: ONDANSETRON 4 MG/2 ML VIAL IV ONE ×2 (20:45→22:15)
[2022-05-13] MEDS ORDERED: diphenhydrAMINE 50 MG/1 ML VIAL IV ONE (21:00)
[2022-05-13] MEDS ORDERED: LORAZEPAM 2 MG/1 ML VIAL IV ONE (21:00)
[2022-05-13] MEDS ORDERED: METOCLOPRAMIDE HCL 10 MG/2 ML VIAL IV ONE (21:00)
[2022-05-13 21:25] LABS: HEMATOCRIT 32.4 % (31.2-41.9); MEAN CORPUSCULAR HEMOGLOBIN 27.8 uug (24.7-32.8); PLATELET COUNT (AUTO) 186 K/uL (179-408)
[2022-05-13 21:30] LABS: CARBON DIOXIDE 20 mmol/L (21-32); CHLORIDE 91 mmol/L (98-107); CREATININE 0.7 mg/dL (0.6-1.3); GLUCOSE 89 mg/dL (74-106); POTASSIUM 4.2 mmol/L (3.5-5.1); UREA NITROGEN, BLOOD 8 mg/dL (7-18)
[2022-05-13 21:32] LABS: ETHANOL 272 MG/DL (0-0)
[2022-05-13] MEDS ORDERED: METOCLOPRAMIDE HCL 10 MG/2 ML VIAL ONE (21:33)
[2022-05-13] MEDS ORDERED: LORAZEPAM 2 MG/1 ML VIAL ONE (21:33)
[2022-05-13] MEDS ORDERED: ONDANSETRON 4 MG/2 ML VIAL ONE ×2 (21:33→22:15)
[2022-05-13] MEDS ORDERED: diphenhydrAMINE 50 MG/1 ML VIAL ONE (21:33)
[2022-05-13 21:40] LABS: ALANINE AMINOTRANSFERASE 64 U/L (14-59); ALKALINE PHOSPHATASE 282 U/L (50-136); ASPARTATE AMINOTRANSFERASE 339 U/L (15-37); BILIRUBIN,DIRECT 2.3 mg/dL (0.0-0.2); BILIRUBIN,TOTAL 3.9 mg/dL (0.2-1.0); TOTAL PROTEIN, SERUM 8.5 g/dL (6.4-8.2)
[2022-05-13 21:44] LABS: ACETAMINOPHEN < 2.0 ug/mL (10-30); THYROID STIMULATING HORMONE 2.043 mIU/mL (0.358-3.740)
[2022-05-13] MEDS ORDERED: IV D5/ 0.9% NACL 1,000 ML IV ONE (22:15)
[2022-05-14 00:24] LABS: *BILIRUBIN,URIN 1+ (NEGATIVE); *BLOOD, URINE NEGATIVE (NEGATIVE); *COLOR,URINE AMBER (YELLOW); *KETONES,URINE 4+ (NEGATIVE); LEUKOCYTE ESTERASE ,URINE NEGATIVE (NEGATIVE); NITRITE, URINE NEGATIVE (NEGATIVE); PH,URINE 5.5 (5.0-8.0); UGLUCOSE NEGATIVE (NEGATIVE)
[2022-05-14] MEDS ORDERED: LORAZEPAM 2 MG/1 ML VIAL IV ONE (00:30)
[2022-05-14] MEDS ORDERED: LORAZEPAM 2 MG/1 ML VIAL ONE (00:31)
[2022-05-14 00:32] LABS: *CLARITY,URINE HAZY (CLEAR)
[2022-05-14 00:37] LABS: *AMPHETAMINE, URINE NEGATIVE (NEGATIVE); *CANNABINOID, URINE NEGATIVE (NEGATIVE); *COCCAINE, URINE NEGATIVE (NEGATIVE); *OPIATE, URINE NEGATIVE (NEGATIVE); *PHENCYCLIDINE SCREEN,URINE NEGATIVE (NEGATIVE)
--- NOTE | 2022-05-14 00:50 | NUR ---
Called [facility] for panel call
[2022-05-14] MEDS: IV NS 1000 ML 1,000 ML IV SCH ×3 (01:15→06:50)
[2022-05-14] MEDS ORDERED: MAGNESIUM HYDROXIDE 30 ML LIQUID UDC PO PRN (01:15)
[2022-05-14] MEDS ORDERED: FOLIC ACID 1 MG in IV DEXTROSE 5% 50 ML IV SCH (01:15)
[2022-05-14] MEDS ORDERED: MVI-12 10 ML IV SCH (01:15)
[2022-05-14] MEDS ORDERED: REMEDY ESSENTIAL ZINC PASTE 113 GM TP PRN (01:15)
[2022-05-14] MEDS ORDERED: ACETAMINOPHEN 325 MG TABLET PO PRN (01:15)
[2022-05-14] MEDS ORDERED: THIAMINE HCL INJ 100 MG in IV DEXTROSE 5% 50 ML IV SCH (01:15)
[2022-05-14] MEDS ORDERED: FLUCONAZOLE PO SCH (01:15)
[2022-05-14 01:21] LABS: BACTERIA,URINE FEW /HPF (NONE SEEN); RBC,URINE 0-3 /HPF (0-3); SQUAMOUS EPITHELIAL CELL,UR MANY /HPF (NONE SEEN); WBC,URINE 0-3 /HPF (0-3)
--- NOTE | 2022-05-14 02:13 | NUR ---
Report given to Kenton CALLE.
--- NOTE | 2022-05-14 02:45 | NUR ---
Pt transfered to room 302 via [facility] with all belongings.
[2022-05-14 03:00] VITALS: BP 128/75
[2022-05-14] MEDS: ONDANSETRON 4 MG/2 ML VIAL IV PRN ×3 (03:02→19:55)
[2022-05-14] MEDS: LORAZEPAM 2 MG/1 ML VIAL IV PRN ×2 (03:03→07:56)
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
[2022-05-14] MEDS ORDERED: THIAMINE HCL 200 MG/2 ML VIAL ONE (03:36)
[2022-05-14] MEDS ORDERED: FOLIC ACID 5 MG/ML VIAL IV ONE (03:37)
[2022-05-14] MEDS ORDERED: METRONIDAZOLE 500 MG TABLET PO SCH (06:00)
[2022-05-14] MEDS: LEVOTHYROXINE SODIUM 125 MCG TABLET PO SCH (06:09)
[2022-05-14] MEDS: PANTOPRAZOLE SODIUM 40 MG TABLET.DR PO SCH (06:10)
[2022-05-14 06:34] LABS: HEMATOCRIT 27.7 % (31.2-41.9); MEAN CORPUSCULAR VOLUME 82.7 fL (75.5-95.3); PLATELET COUNT (AUTO) 136 K/uL (179-408)
[2022-05-14 06:46] LABS: CREATININE 0.6 mg/dL (0.6-1.3); MAGNESIUM 1.5 mg/dL (1.8-2.4); PHOSPHOROUS 1.8 mg/dL (2.5-4.9); POTASSIUM 3.7 mmol/L (3.5-5.1)
[2022-05-14] MEDS ORDERED: CYANOCOBALAMIN 1,000 MCG TABLET PO SCH (09:00)
[2022-05-14] MEDS ORDERED: MIRALAX 17 GM POWD.PACK PO SCH (09:00)
[2022-05-14] MEDS ORDERED: RIFAXIMIN 550 MG TABLET PO SCH (09:00)
[2022-05-14] MEDS ORDERED: MVI ADULT 10 ML VIAL=1 AMP 10 ML in IV NS 1000 ML 1,000 ML IV ONE (09:00)
[2022-05-14] MEDS ORDERED: SENNOSIDES 1 TABLET PO SCH (09:00)
[2022-05-14] MEDS ORDERED: NEUTRA PHOS PACKET PO ONE (09:30)
[2022-05-14] MEDS ORDERED: MAGNESIUM SULFATE/D5W 100 ML IV SCH (09:30)
[2022-05-14] MEDS ORDERED: IV 1/2NS 1000 ML 1,000 ML IV PRN (09:30)
[2022-05-14] MEDS: PROPRANOLOL HCL 20 MG TABLET PO SCH ×2 (10:25→16:08)
[2022-05-14] MEDS: LACTULOSE 20 G/30 ML LIQUID UDC PO SCH ×3 (10:26→16:05)
[2022-05-14] MEDS: MORPHINE SULFATE 2 MG/1 ML DISP.SYRIN IV PRN ×3 (10:26→19:50)
[2022-05-14] MEDS: MAGNESIUM SULFATE/D5W 100 ML IV SCH ×2 (10:56→12:14)
[2022-05-14 11:30] VITALS: BP 121/93
[2022-05-14] MEDS: LORAZEPAM 1 MG TABLET PO PRN ×2 (12:06→20:59)
[2022-05-14 16:00] VITALS: BP 119/89
--- NOTE | 2022-05-14 20:00 | NUR ---
Received patient in bed, alert oriented, no sob no chest pain, complain of nausea and abdominal pain, given medication as ordered, with episode of restlessness, unable to sleep. cont to monitor.
[2022-05-14 20:18] VITALS: BP 123/78
--- NOTE | 2022-05-14 21:55 | NUR ---
Patient complain of anxiety, unable to sleep, given Ativan 1mg po as ordered will cont to monitor.
[2022-05-15] MEDS: MORPHINE SULFATE 2 MG/1 ML DISP.SYRIN IV PRN (03:36)
[2022-05-15] MEDS: ONDANSETRON 4 MG/2 ML VIAL IV PRN (03:36)
--- NOTE | 2022-05-15 03:49 | NUR ---
Patient claim she vomits 10x, but patient in bed no vomitus on vomit bag, made frequent rounds, patient sleeping most of the night, cont given morphine for abdominal pain plus zofran for nausea, cont to monitor.
[2022-05-15 04:29] VITALS: BP 129/95
[2022-05-15] MEDS: PANTOPRAZOLE SODIUM 40 MG TABLET.DR PO SCH (06:06)
[2022-05-15] MEDS: LEVOTHYROXINE SODIUM 125 MCG TABLET PO SCH (06:06)
--- NOTE | 2022-05-15 06:26 | NUR ---
Patient awake no sob no chest pain, no further episode of nausea, no vomiting noted, patient still complain of abdominal pain, but tolerable pain, noted with still have hand tremors, call light within reach.
[2022-05-15 06:37] LABS: HEMATOCRIT 32.2 % (31.2-41.9); MEAN CORPUSCULAR HEMOGLOBIN 28.1 uug (24.7-32.8); MEAN CORPUSCULAR VOLUME 82.9 fL (75.5-95.3); PLATELET COUNT (AUTO) 102 K/uL (179-408)
[2022-05-15 07:21] LABS: BILIRUBIN,TOTAL 4.7 mg/dL (0.2-1.0); CREATININE 0.7 mg/dL (0.6-1.3); MAGNESIUM 1.9 mg/dL (1.8-2.4); POTASSIUM 3.1 mmol/L (3.5-5.1); TOTAL PROTEIN, SERUM 7.6 g/dL (6.4-8.2)
--- NOTE | 2022-05-15 07:32 | NUR ---
Patient left AMA at 7:30 am, while I was getting reports on my patients. She had no IV on her, she said "it fell off", also we cut her hospital bracelet off. patient was dressed in her red t-shirt, pants and had her brown purse wit her with her belongings.
[2022-05-15] MEDS ORDERED: FOLIC ACID 1 MG TABLET PO SCH (09:00)
[2022-05-15] MEDS ORDERED: MULTIVIT, IRON, MIN NO. 8, FA TABLET PO SCH (09:00)
[2022-05-15] MEDS ORDERED: THIAMINE HCL 100 MG TABLET PO SCH (09:00)
[2022-05-15] MEDS ORDERED: LACTULOSE 20 G/30 ML LIQUID UDC PO SCH (09:00)
[2022-05-15] MEDS ORDERED: POTASSIUM CHLORIDE 20 MEQ TAB.PRT.SR PO SCH (09:30)
== END 2022-05-15 07:30 | disposition left against medical advice (07) | DRG 280 ==
LOC: ER 19:33 → TELE3 05-14 02:19 → MEDSURG3 05-14 23:55
PROVIDERS: ADMIT Internal Medicine; ATTEND Internal Medicine
DX: K70.30 Alcoholic cirrhosis of liver without ascites (principal); D63.8 Anemia in other chronic diseases classified elsewhere; K20.80 Other esophagitis without bleeding; K29.20 Alcoholic gastritis without bleeding; F10.229 Alcohol dependence with intoxication, unspecified; F10.239 Alcohol dependence with withdrawal, unspecified; E78.5 Hyperlipidemia, unspecified; Z20.822 Contact with and (suspected) exposure to COVID-19; F31.9 Bipolar disorder, unspecified; Z90.49 Acquired absence of other specified parts of digestive tract; E66.9 Obesity, unspecified; Z68.25 Body mass index [BMI] 25.0-25.9, adult; R74.01 Elevation of levels of liver transaminase levels; Y90.8 Blood alcohol level of 240 mg/100 ml or more; S05.12XA Contusion of eyeball and orbital tissues, left eye, initial encounter; W19.XXXA Unspecified fall, initial encounter; Y93.9 Activity, unspecified; Y92.89 Other specified places as the place of occurrence of the external cause; R94.31 Abnormal electrocardiogram [ECG] [EKG]
CPT/HCPCS: 36415; 70450; 71045; 83690; 83735; 84100; 84443; 84484; 85025; 85730; 93005; G0378; G0480; J1200; J2060; J2270; J2405; J2765; J3411; J3475; J3490; J7040; J7042

== ENCOUNTER 2023-03-14 18:09 | Emergency (ER) | payer OTHER ==
[~2023-03-14 18:09] MED LIST changes: -FLUC150T PO
--- NOTE | 2023-03-14 19:18 | NUR ---
Patient was called to be triaged at this time but was not present in the waiting room or outside of ER.
--- NOTE | 2023-03-14 19:20 | NUR ---
Patient was called to be triaged but was not present in the waiting room or outside of ER.
--- NOTE | 2023-03-14 19:45 | NUR ---
Patient was called to be triaged but was not present in the waiting room or outside of ER. PATIENT WAS NOT TRIAGED OR SEEN BY ERMD.
== END 2023-03-14 19:45 | disposition left against medical advice (07) ==
LOC: ER 18:13
DX: Z53.21 Procedure and treatment not carried out due to patient leaving prior to being seen by health care provider (principal)

== ENCOUNTER 2023-11-19 16:04 | Emergency (ER) | payer OTHER ==
[~2023-11-19] VITALS: Ht 175.3 cm; Wt 77.1 kg
[2023-11-19] MEDS ORDERED: MAGNESIUM SULFATE/D5W 100 ML IV ONE (16:15)
[2023-11-19] MEDS ORDERED: THIAMINE HCL 200 MG/2 ML VIAL IV ONE (16:15)
[2023-11-19] MEDS ORDERED: IV NORMAL SALINE 1000 ML BAG IV ONE (16:15)
[2023-11-19] MEDS ORDERED: LORAZEPAM 2 MG/1 ML VIAL IV ONE (16:15)
[2023-11-19] MEDS ORDERED: MAGNESIUM SULFATE/D5W 100 ML ONE ×2 (16:57→20:10)
[2023-11-19] MEDS ORDERED: THIAMINE HCL 200 MG/2 ML VIAL ONE ×2 (16:57→18:55)
[2023-11-19] MEDS ORDERED: LORAZEPAM 2 MG/1 ML VIAL ONE (16:58)
[2023-11-19 16:59] LABS: CALCIUM 8.1 mg/dL (8.5-10.1); CARBON DIOXIDE 26 mmol/L (21-32); CHLORIDE 108 mmol/L (98-107); CREATININE 0.5 mg/dL (0.6-1.3); GLUCOSE 89 mg/dL (74-106); POTASSIUM 3.5 mmol/L (3.5-5.1); SODIUM SERUM 144 mmol/L (136-145); UREA NITROGEN, BLOOD 9 mg/dL (7-18)
[2023-11-19] MEDS ORDERED: THIAMINE HCL IV ONE (17:00)
[2023-11-19] MEDS ORDERED: DEXTROSE 5% IV ONE (17:00)
[2023-11-19 17:05] LABS: ALANINE AMINOTRANSFERASE 48 U/L (14-59); ALKALINE PHOSPHATASE 204 U/L (50-136); ASPARTATE AMINOTRANSFERASE 201 U/L (15-37); BILIRUBIN,DIRECT 0.9 mg/dL (0.0-0.2); BILIRUBIN,TOTAL 2.2 mg/dL (0.2-1.0); TOTAL PROTEIN, SERUM 7.1 g/dL (6.4-8.2)
[2023-11-19 17:08] LABS: BASOPHILS # (AUTO) 0.1 K/UL (0.0-0.2); BASOPHILS % (AUTO) 3.1 % (0.0-2.0); EOSINOPHILS # (AUTO) 0.1 K/uL (0.0-0.7); EOSINOPHILS % (AUTO) 2.1 % (0.0-7.0); HEMOGLOBIN 9.2 g/dL (10.9-14.3); LYMPHOCYTES % (AUTO) 38.5 % (20.5-51.5); MEAN CORPUSCULAR HEMOGLOBIN 24.9 uug (24.7-32.8); MEAN CORPUSCULAR HGB CONC 32 g/dL (32.3-35.6); MEAN CORPUSCULAR VOLUME 78.2 fL (75.5-95.3); MONOCYTES # (AUTO) 0.4 K/uL (0.1-1.30); PLATELET COUNT (AUTO) 108 K/uL (179-408); RED CELL DISTRIBUTION WIDTH 20.3 % (12.3-17.7); WHITE BLOOD COUNT (AUTO) 2.5 K/uL (3.8-11.8)
[2023-11-19 17:13] LABS: DIFFERENTIAL COMMENT 1; MONOCYTES % (AUTO) 13.9 % (0.0-11.0)
[2023-11-19 17:14] LABS: ETHANOL 428 MG/DL (0-10); NEUTROPHILS % (AUTO) 42.3 % (38.5-71.5)
[2023-11-19 20:19] VITALS: O2SAT 97
[2023-11-19] MEDS ORDERED: ACETAMINOPHEN 325 MG TABLET PO PRN (21:00)
[2023-11-19] MEDS ORDERED: REMEDY ESSENTIAL ZINC PASTE 113 GM TP PRN (21:00)
[2023-11-19] MEDS ORDERED: IV NS 1000 ML 1,000 ML IV PRN (21:00)
[2023-11-19] MEDS ORDERED: LORAZEPAM 2 MG/1 ML VIAL IV PRN (21:00)
[2023-11-19] MEDS ORDERED: THIAMINE HCL INJ 100 MG in IV DEXTROSE 5% 50 ML IV SCH (21:00)
[2023-11-19] MEDS ORDERED: ONDANSETRON 4 MG/2 ML VIAL IV PRN (21:00)
[2023-11-19] MEDS ORDERED: MAGNESIUM HYDROXIDE 30 ML LIQUID UDC PO PRN (21:00)
[2023-11-19] MEDS ORDERED: METRONIDAZOLE 500 MG TABLET PO SCH (22:00)
[2023-11-20] MEDS ORDERED: PANTOPRAZOLE SODIUM 40 MG VIAL IV SCH (09:00)
[2023-11-20] MEDS ORDERED: CYANOCOBALAMIN 1,000 MCG TABLET PO SCH (09:00)
[2023-11-20] MEDS ORDERED: LACTULOSE 20 G/30 ML LIQUID UDC PO SCH (09:00)
[2023-11-20] MEDS ORDERED: SENNOSIDES 1 TABLET PO SCH (09:00)
[2023-11-20] MEDS ORDERED: LEVOTHYROXINE SODIUM 125 MCG TABLET PO SCH (09:00)
[2023-11-20] MEDS ORDERED: PROPRANOLOL HCL 20 MG TABLET PO SCH (09:00)
[2023-11-20] MEDS ORDERED: CHLORDIAZEPOXIDE HCL 25 MG CAPSULE PO SCH (09:00)
[2023-11-20] MEDS ORDERED: RIFAXIMIN 550 MG TABLET PO SCH (09:00)
== END 2023-11-19 22:19 | disposition left against medical advice (07) ==
LOC: ER 16:08
DX: F10.129 Alcohol abuse with intoxication, unspecified (principal); R07.89 Other chest pain; R51.9 Headache, unspecified; M79.674 Pain in right toe(s); D72.819 Decreased white blood cell count, unspecified; Z88.8 Allergy status to other drugs, medicaments and biological substances; Z79.899 Other long term (current) drug therapy; Y90.8 Blood alcohol level of 240 mg/100 ml or more
CPT/HCPCS: 36415; 70450; 71045; 73660; 83605; 83690; 85025; 85610; 87040; 93005; A4606; A4663; G0480; J2060; J3411; J3475; J7040